=== PATIENT | female | born 1975 | race Caucasian/White ===

== ENCOUNTER 2017-08-06 12:24 | Emergency (ER) | payer BC, OTHER ==
[2017-08-06 12:31] VITALS: BP 145/91; PULSE 70; TEMP 98.8; BMI 41.5
--- NOTE | 2017-08-06 12:34 | PDOC ---
History of Present Illness - General Chief Complaint: Injury Stated Complaint: LEFT THUMB INJURY Time Seen by Provider: 08/06/17 12:26 History Source: Patient Exam Limitations: No Limitations - History of Present Illness Initial Comments: 42 yo F history Von Willebrand's as well as thrombophilia presents with L thumb pain. She works at a [employer], states that one of the children grabbed her thumb, bent it backwards towards her wrist. She is able to move it, but has significant pain on movement. Denies weakness, numbness. No other injuries. Past History - Past Medical History Allergies/Adverse Reactions: Allergies Allergy/AdvReac Type Severity Reaction Status Date / Time No Known Allergies Allergy Verified 08/06/17 12:25 Home Medications: Ambulatory Orders Aspirin [Aspirin EC] 81 mg PO DAILY 08/06/17 Ibuprofen [Motrin -] 600 mg PO TID PRN #21 tablet 08/06/17 Multivitamin [One Daily] 1 each PO DAILY 08/06/17 - Suicide/Smoking/Psychosocial Hx Smoking History: Former smoker Have you smoked in the past 12 months: No Information on smoking cessation initiated: No Hx Alcohol Use: No Drug/Substance Use Hx: No Substance Use Type: None Review of Systems - Review of Systems Able to Perform ROS?: Yes Comments:: GENERAL/CONSTITUTIONAL: No fever or chills. No weakness. HEAD, EYES, EARS, NOSE AND THROAT: No change in vision. No ear pain or discharge. No sore throat. MUSCULOSKELETAL: No joint or muscle swelling or pain. No neck or back pain. SKIN: No rash NEUROLOGIC: No headache, vertigo, loss of consciousness, or change in strength/ sensation. ENDOCRINE: No increased thirst. No abnormal weight change. HEMATOLOGIC/LYMPHATIC: +Thrombophilia. +Von Willebrand's disease. *Physical Exam - Vital Signs Last Vital Signs Temp Pulse Resp BP Pulse Ox 98.8 F 70 18 145/91 96 08/06/17 12:25 08/06/17 12:25 08/06/17 12:25 08/06/17 12:25 08/06/17 12:25 - Physical Exam Comments: GENERAL: Awake, alert, and fully oriented, in no acute distress HEAD: No signs of trauma EYES: PERRLA, EOMI, sclera anicteric, conjunctiva clear ENT: Auricles normal inspection, hearing grossly normal, nares patent, oropharynx clear without exudates. Moist mucosa EXTREMITIES: L thumb with tenderness over the thenar eminence. +Pain on flexion of the wrist. No deformities. Remainder of extremities with normal range of motion, no edema. No clubbing or cyanosis. No cords, erythema, or tenderness NEUROLOGICAL: Cranial nerves II through XII grossly intact. Normal speech, normal gait. SKIN: Warm, Dry, normal turgor, no rashes or lesions noted. Procedures - Splinting Splint Location: Left: Finger (thumb) Pre-Proc Neuro Vasc Exam: normal Hand-Made Type: orthoglass Splint Type: Yes: Thumb Spica Post-Proc Neuro Vasc Exam: normal Aydin Bandage: yes, 2" Complications: No Medical Decision Making - Medical Decision Making XR reviewed, no acute fracture. Will place in splint for sprain. Ortho f/u as outpatient. NSAIDs for pain. *DC/Admit/Observation/Transfer Diagnosis at time of Disposition: Thumb pain Left thumb sprain Qualifiers: Encounter type: initial encounter Sprain of finger site: unspecified site Qualified Code(s): S63.602A - Unspecified sprain of left thumb, initial encounter - Discharge Dispostion Disposition: HOME Condition at time of disposition: Stable Admit: No - Prescriptions Prescriptions: Ibuprofen [Motrin -] 600 mg PO TID PRN #21 tablet PRN Reason: Pain - Referrals Referrals: Adria Lares MD [Staff Physician] - - Patient Instructions Printed Discharge Instructions: DI for Finger Sprain - Post Discharge Activity Forms/Work/School Notes: Back to Work
[2017-08-06] MEDS ORDERED: IBUPROFEN 600 MG TABLET (FP) PO ONE ×2 (12:45→12:53)
== END 2017-08-06 14:59 | disposition home or self-care (01) ==
LOC: FER 12:24
CPT/HCPCS: 73130-TC-LT; 99283-25

== ENCOUNTER 2018-07-21 19:15 | Inpatient (IN) | payer OTHER ==
[2018-07-21] MEDS ORDERED: SODIUM CHLORIDE 1,000 ML IV STA (20:29)
[2018-07-21] MEDS ORDERED: ONDANSETRON 4 MG/2 ML VIAL IVPUSH ONE (20:29)
[2018-07-21] MEDS ORDERED: morphine CARPU-JECT 4 MG/1 ML DISP.SYRIN IVPUSH ONE (20:29)
--- NOTE | 2018-07-21 20:37 | PDOC ---
History of Present Illness - General Chief Complaint: Pain Stated Complaint: ABD PAIN Time Seen by Provider: 07/21/18 20:15 History Source: Patient, Old Records Exam Limitations: No Limitations - History of Present Illness Initial Comments: 07/21/18 20:46 HISTORY OF PRESENT ILLNESS: 43-year-old woman past medical history of Von Willenbrand's and hemorrhagic left ovarian cyst who presents emergency Department with abdominal pain starting approximately 36 hours prior to arrival. Patient states the pain is slowly grown since that time currently rates pain 9/10. Patient is unable to determine location of pain that started on the left side and has progressed throughout her abdomen. Patient reports nausea and inability to tolerate oral food or drink for the past 24 hours. Patient denies fevers reports chills. Patient denies chest pain, shortness of breath, dizziness, diarrhea, rectal bleeding, vaginal bleeding, dysuria, hematuria. No recent travel or sick contacts. PAST MEDICAL HISTORY: Von Yoannarand's SURGICAL HISTORY: Denies ALLERGIES: No known drug allergies REVIEW OF SYSTEMS General/Constitutional: Denies fever. +chills. Denies weakness, weight change. HEENT: Denies change in vision. Denies ear pain or discharge. Denies sore throat. Cardiovascular: Denies chest pain or shortness of breath. Respiratory: Denies cough, wheezing, or hemoptysis. Gastrointestinal: Reports nausea, vomiting. Denies diarrhea or constipation. Denies rectal bleeding. Genitourinary: Denies dysuria, frequency, or change in urination. Musculoskeletal: Denies joint or muscle swelling or pain. Denies neck or back pain. Skin and breasts: Denies rash or easy bruising. Neurologic: Denies headache, vertigo, loss of consciousness, or loss of sensation. Psychiatric: Denies depression or anxiety. Endocrine: Denies increased thirst. Denies abnormal weight change. Hematologic/Lymphatic: Denies anemia, easy bleeding, or history of blood clots. Allergic/Immunologic: Denies hives or skin allergy. Denies latex allergy. PHYSICAL EXAM General Appearance: Well-appearing, appropriately dressed. No apparent distress , no intoxication. HEENT: EOMI, PERRLA, normal ENT inspection, normal voice, TMs normal, pharynx normal. No conjunctival pallor. No photophobia, scleral icterus. Neck: Supple. Trachea midline. No tenderness, rigidity, carotid bruit, stridor , lymphadenopathy, or thyromegaly. Respiratory/Chest: Lungs CTAB. No shortness of breath, chest tenderness, respiratory distress, accessory muscle use. No crackles, rales, rhonchi, stridor , wheezing, dullness Cardiovascular: RRR. S1, S2. No JVD, murmur, bradycardia, tachycardia. Vascular Pulses: Dorsalis-Pedis (R): 2+, Dorsalis-Pedis (L): 2+ Gastrointestinal/Abdominal: Normal bowel sounds. Obese abdomen soft, non- distended. RLQ and LLQ tenderness with guarding. No rebound tenderness. No organomegaly, pulsatile mass, hernia, hepatomegaly, splenomegaly. Lymphatic: No adenopathy, tenderness. Musculoskeletal/Extremities: Normal inspection. FROM of all extremities, normal capillary refill. Pelvis Stable. No CVA tenderness. No tenderness to extremities, pedal edema, swelling, erythema or deformity. Integumentary: Appropriate color, dry, warm. 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 Fully oriented, alert. Appropriate mood/affect. Motor strength 5/5. No appreciable EOM palsy, facial droop or sensory deficit. Past History - Past Medical History Allergies/Adverse Reactions: Allergies Allergy/AdvReac Type Severity Reaction Status Date / Time No Known Allergies Allergy Verified 07/21/18 19:41 Home Medications: Ambulatory Orders NK [No Known Home Medication] 07/21/18 COPD: No - Suicide/Smoking/Psychosocial Hx Smoking History: Never smoked Have you smoked in the past 12 months: No Information on smoking cessation initiated: No Hx Alcohol Use: No Drug/Substance Use Hx: No Substance Use Type: None *Physical Exam - Vital Signs Last Vital Signs Temp Pulse Resp BP Pulse Ox 99.7 F H 92 H 18 144/66 100 07/21/18 19:35 07/21/18 19:35 07/21/18 19:35 07/21/18 19:35 07/21/18 19:35 ED Treatment Course - LABORATORY CBC & Chemistry Diagram: 07/21/18 20:42 07/21/18 20:42 - RADIOLOGY Radiology Studies Ordered: Category Date Time Status ABDOMEN & PELVIS CT WITH CONTR [CT] Stat CT Scan 07/21/18 20:32 Ordered CHEST X-RAY PORTABLE* [RAD] Stat Radiology 07/21/18 20:31 Ordered Medical Decision Making - Medical Decision Making 07/21/18 20:53 A/P: 43-year-old woman history of von Willebrand's and hemorrhagic ovarian cyst with lower abdominal pain for 36 hours Normoactive bowel sounds Diffuse tenderness to lower abdomen Regarding lower abdomen No rebound tenderness No CVA tenderness elicited DDx: Appendicitis, diverticulitis, ovarian cyst, ectopic , UTI, colitis , renal colic, mesenteric ischemia Labs with blood culture, urine with culture, IV fluids, morphine 4 mg IV now, Zofran 4 mg IV now, normal saline, CXR, EKG 07/21/18 22:19 Chest x-rays read by me: No acute pulmonary pathology noted. EKG: Sinus rhythm with rate of 99. Normal intervals noted. No T-wave inversions , ST elevations or ST depressions present. Patient with elevated lactic acid. I will treat with Zosyn 4.5 g now and vancomycin 1500 mg. 07/22/18 00:01 Patient returned from CAT scan complaining of entire body itching. Patient had just received IV contrast for the CAT scan. Patient denied any shortness of breath or throat itching. It is noted that her vancomycin was infusing rapidly at the same time. Diffuse erythema noted to patient's body with pruritus. Examination of the oropharynx reveals no erythema or edema noted. No stridor present. Speaking full sentences. No drooling noted. Patient medicated with Benadryl 50 mg IV push, Solu-Medrol 125 mg IV push and Pepcid 20 mg IV. Vancomycin was stopped. CT of abdomen and pelvis as discussed with Dr. Lacey: Acute diverticulitis without abscess formation. As patient has a white count M had an elevated lactate I'll admit the patient for IV antibiotics. Patient's primary doctor is at [facility] I will call [facility] for admission. 07/22/18 00:51 case d/w Dr. Craven who accepts pt for admission under Dr. Coffey. *DC/Admit/Observation/Transfer Diagnosis at time of Disposition: Diverticulitis - Discharge Dispostion Condition at time of disposition: Fair Decision to Admit order: Yes - Referrals Referrals: Celeste Jung MD [Primary Care Provider] - - Patient Instructions - Post Discharge Activity
[2018-07-21] MEDS ORDERED: morphine SULFATE 4 MG/ML VIAL ONE (20:49)
[2018-07-21] MEDS ORDERED: ONDANSETRON 4 MG/2 ML VIAL ONE (20:49)
[2018-07-21 20:54] LABS: BASO % 0.2 % (0-2.0); EOS % 0.1 % (0-4.5); HEMATOCRIT 41.3 % (32.4-45.2); HEMOGLOBIN 13.8 GM/dL (10.7-15.3); LYMPH % 9.2 % (8-40); MCH 30.1 pg (25.7-33.7); MCHC 33.5 g/dl (32.0-36.0); MEAN CELL VOLUME 89.8 fl (80-96); MEAN PLT VOLUME 7.8 fl (7.5-11.1); MONO % 5.1 % (3.8-10.2); NEUT % 85.4 % (42.8-82.8); PLATELET COUNT 283 K/MM3 (134-434); WHITE BLOOD COUNT 14.5 K/mm3 (4.0-10.0)
[2018-07-21 21:13] LABS: INR 1.06 (0.83-1.09)
[2018-07-21 21:25] LABS: ALBUMIN 3.8 g/dl (3.4-5.0); ANION GAP 10 MMOL/L (8-16); BLOOD UREA NITROGEN 9 mg/dL (7-18); CHLORIDE 101 mmol/L (98-107); CO2 27 mmol/L (21-32); GLUCOSE,RANDOM 193 mg/dL (74-106); LIPASE 70 U/L (73-393); POTASSIUM 4.2 mmol/L (3.5-5.1); SODIUM 138 mmol/L (136-145)
[2018-07-21 21:28] LABS: ALK PHOS 97 U/L (45-117); BILIRUBIN,TOTAL 0.9 mg/dL (0.2-1.0); CREATININE 0.7 mg/dL (0.55-1.3); SGOT/AST 26 U/L (15-37); SGPT/ALT 44 U/L (13-61); TOT PROT 7.5 g/dl (6.4-8.2)
[2018-07-21 21:29] LABS: URINE APPEARANCE SLCLOUDY; URINE BILIRUBIN NEGATIVE (<2.0 mg/dL); URINE COLOR YELLOW; URINE GLUCOSE (UA) 1+ (NEGATIVE); URINE KETONE 2+ (NEGATIVE); URINE LEUK ESTERASE NEGATIVE (NEGATIVE); URINE NITRITE NEGATIVE (NEGATIVE); URINE UROBILINOGEN 4.0 E.U/dl mg/dL (0.2-1.0)
[2018-07-21 21:36] LABS: URINE PROTEIN 1+ (NEGATIVE)
[2018-07-21] MEDS ORDERED: PIPERACILLIN/TAZOB 4.5 GM 4.5 GM in DEXTROSE 5%-WATER 100 ML IVPB ONE (21:40)
[2018-07-21] MEDS ORDERED: VANCOMYCIN 1,500 MG in DEXTROSE 5%-WATER - 500 ML IVPB ONE (21:41)
[2018-07-21 21:42] LABS: EPI CELLS MODERATE /HPF (FEW); URINE BACTERIA MODERATE /hpf (NONE SEEN); URINE MUCUS MODERATE
[2018-07-21] MEDS ORDERED: PIPERACILLIN/TAZOB 4.5 GM 4.5 GM/100 ML BAG IVPB ONE (21:46)
[2018-07-21] MEDS ORDERED: methylPREDNISolone NA SUCC 125 MG/2 ML VIAL IVPUSH ONE (23:21)
[2018-07-21] MEDS ORDERED: FAMOTIDINE 20 MG/50 ML IVPB 20 MG/50 ML MG IVPB ONE ×2 (23:21→23:25)
[2018-07-21] MEDS ORDERED: methylPREDNISolone NA SUCC 125 MG/2 ML VIAL ONE (23:25)
[2018-07-22] MEDS ORDERED: morphine CARPU-JECT 4 MG/1 ML DISP.SYRIN IVPUSH ONE (00:02)
[2018-07-22] MEDS ORDERED: morphine SULFATE 4 MG/ML VIAL ONE (00:37)
--- NOTE | 2018-07-22 01:58 | PN ---
Teaching Attending Note Name of Resident: Katty Marie ATTENDING PHYSICIAN STATEMENT I saw and evaluated the patient. I reviewed the resident's note and discussed the case with the resident. I agree with the resident's findings and plan as documented. SUBJECTIVE: Patient is a 43 year old woman with PMH of Von Willenbrand's disease, thrombophilia and hemorrhagic left ovarian cyst who presents to the ER with abdominal pain starting approximately 36 hours prior to arrival. Patient states the pain is slowly increasing since that time rates pain as 9/10. Patient is unable to determine location of pain that started on the left side and has progressed throughout her abdomen. Patient reports nausea and inability to tolerate food or drink for the past 24 hours. Patient denies fevers reports chills. Patient denies chest pain, shortness of breath, dizziness, diarrhea, rectal bleeding, vaginal bleeding, dysuria, or hematuria. OBJECTIVE: Alert Vital Signs Period Temp Pulse Resp BP Sys/Borrero Pulse Ox Last 24 Hr 99.7 F 92 18 144/66 100 HEENT: No Jaundice, eye redness or discharge, PERRLA, EOMI. Normocephalic, atraumatic. External ears are normal and hearing is grossly intact. No nasal discharge. Neck: Supple, nontender. No palpable adenopathy or thyromegaly. No JVD Chest: Good effort. Clear to auscultation and percussion. Heart: Regular. No S3, rub or murmur Abdomen: Not distended, soft, lower abdominal tenderness and no HSM. No rebound or guarding. Normoactive bowel sounds. Ext: Peripheral pulses intact. No leg edema. Skin: Warm and dry. No petechiae, rash or ecchymosis. Neuro: Alert. Oriented x3. CN 2-12 grossly intact. Sensation grossly intact in all four extremities and DTR are symmetric. Home Medications Medication Instructions Recorded NK [No Known Home Medication] 07/21/18 Abnormal Lab Results 07/21/18 07/21/18 07/21/18 20:42 20:42 20:42 WBC 14.5 H Absolute Neuts (auto) 12.4 H Neutrophils % 85.4 H Random Glucose 193 H Lactic Acid 3.1 H* Lipase 70 L Urine Protein Urine Glucose (UA) Urine Ketones Urine Urobilinogen 07/21/18 07/22/18 21:04 00:30 WBC Absolute Neuts (auto) Neutrophils % Random Glucose Lactic Acid 2.2 H* Lipase Urine Protein 1+ H Urine Glucose (UA) 1+ H Urine Ketones 2+ H Urine Urobilinogen 4.0 e.u/dl H ASSESSMENT AND PLAN: 1. Sepsis due to Sigmoid Diverticulitis - Will treat with IV rocephin and cipro. Continue IV NS and trend lactic acid level. She denies having DM or family history of DM. Will get HbAic, implement sliding scale insulin regimen and consult endocrinology. May need to be started on diabetes treatment. Provide comprehensive diabetes care with patient teaching and counseling about the importance of euglycemia, eye care and foot care. Strive for normotension. 2. Obesity - Will provide patient all the necessary assistance, counseling and positive reinforcement to facilitate weight loss. Consult insulating machine operator. 3. DVT prophylaxis - Lovenox 40 mg SQ q 24 hours. 4. Advance directives - Full code
[2018-07-22] MEDS ORDERED: ACETAMINOPHEN 1000 MG/100 ML VIAL (NON FORMULARY) IVPB ONE (03:19)
--- NOTE | 2018-07-22 03:23 | HP ---
CHIEF COMPLAINT: Abdominal pain PCP: Dr. Kelly Adams (Last seen >1 year ago) HISTORY OF PRESENT ILLNESS: 43 y/o F with PMHx of von Willebrand disease, Left Ovarian cysts presents with progressive Abdominal pain for the past 48 hours. Patient woke up Wednesday morning with a cramping, pelvic pain she felt was similar to menstrual cramping (LMP ended 07/02). Patient tolerated diet Wednesday and at some point during Wednesday night, patient woke with an unbearable abdominal pain. She describes the pain as Stabbing and sharp, initially in the suprapubic region that is now also present in the center of the Abdomen and the LUQ, at worst 10/10. Patient tried Motrin and Aleve with out any relief. She has never experienced pain like this in the past. She is unable to identify any triggering factors. The pain remained without any improvement and the patient began to experience nausea accompanied by a single episode of billious vomit, 1/4 cups worth, at 5pm at which point she decided to visit the ED. She additionally experienced some chills while at home. Her last BM was Wednesday morning and the last meal she tolerated was Wednesday night. Patient has 1-2 BM's daily without any blood, mucus, straining. She denies any recent episodes of diarrhea. Denies any hx of constipation, appendicitis, diverticulitis, diverticulosis, kidney stones. Denies any hx of STI's/STD's. She admits that her diet is heavy in carbs but also has significant portions of spinach and salad. She has never visited a campus coordinator and has never had a colonoscopy. Denies any recent Antibiotic use, medication changes, sick contacts, dietary changes or travel. Denies any recent fevers, chest pain, SOB, dysuria, hematuria. 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 Residence: Lives at home with her , 2 children and a dog Ambulation: On her own without assistance Family History: Father and 2 Brothers suffer from Alcoholism, one brother has passed from drug overdose Allergies No Known Allergies Allergy (Verified 07/21/18 19:41) HOME MEDICATIONS: Home Medications Medication Instructions Recorded NK [No Known Home Medication] 07/21/18 REVIEW OF SYSTEMS CONSTITUTIONAL: Present: Chills, Decreased PO Intake Absent: fever, diaphoresis, generalized weakness, malaise, loss of appetite, weight change HEENT: Absent: rhinorrhea, nasal congestion, throat pain, throat swelling, difficulty swallowing, mouth swelling, ear pain, eye pain, visual changes CARDIOVASCULAR: Absent: chest pain, syncope, palpitations, irregular heart rate, lightheadedness , peripheral edema RESPIRATORY: Absent: cough, shortness of breath, dyspnea with exertion, orthopnea, wheezing, stridor, hemoptysis GASTROINTESTINAL: Present: cramping Abdominal/pelvic pain, nausea, vomiting, Absent: abdominal distension, diarrhea, constipation, melena, hematochezia GENITOURINARY: Absent: dysuria, frequency, urgency, hesitancy, hematuria, flank pain, genital pain MUSCULOSKELETAL: Absent: myalgia, arthralgia, joint swelling, back pain, neck pain SKIN: Absent: rash, itching, pallor HEMATOLOGIC/IMMUNOLOGIC: Absent: easy bleeding, easy bruising, lymphadenopathy, frequent infections ENDOCRINE: Absent: unexplained weight gain, unexplained weight loss, heat intolerance, cold intolerance NEUROLOGIC: Absent: headache, focal weakness or paresthesias, dizziness, unsteady gait, seizure, mental status changes, bladder or bowel incontinence PSYCHIATRIC: Absent: anxiety, depression, suicidal or homicidal ideation, hallucinations. PHYSICAL EXAMINATION Vital Signs - 24 hr 07/21/18 07/22/18 19:35 03:12 Temperature 99.7 F H 102.3 F H Pulse Rate 92 H Pulse Rate [ 93 H Left Radial] Respiratory 18 19 Rate Blood Pressure 144/66 Blood Pressure 133/65 [Left Arm] O2 Sat by Pulse 100 Oximetry (%) GENERAL: Awake, alert, and fully oriented, cool and clammy, in no acute distress. HEAD: NCAT. EYES: PERRL, EOMI THROAT: Oropharynx clear without exudates. Dry mucous membranes. NECK: No JVD LUNGS: Breath sounds equal, clear to auscultation bilaterally. No wheezes. HEART: Regular rate and rhythm, normal S1 and S2 without murmur. ABDOMEN: Obese, Soft, Tender to palpation throughout worst in the Suprapubic and LUQ regions, not distended, normoactive bowel sounds MUSCULOSKELETAL: No CVA tenderness. EXTREMITIES: 2+ pulses, No calf tenderness. No peripheral edema. NEUROLOGICAL: Cranial nerves II-XII intact. Normal speech. Laboratory Results - last 24 hr 07/21/18 07/21/18 07/21/18 20:42 20:42 20:42 WBC 14.5 H RBC 4.60 Hgb 13.8 Hct 41.3 MCV 89.8 MCH 30.1 MCHC 33.5 RDW 13.0 Plt Count 283 MPV 7.8 Absolute Neuts (auto) 12.4 H Neutrophils % 85.4 H Lymphocytes % 9.2 Monocytes % 5.1 Eosinophils % 0.1 Basophils % 0.2 Nucleated RBC % 0 PT with INR 12.00 INR 1.06 Sodium 138 Potassium 4.2 Chloride 101 Carbon Dioxide 27 Anion Gap 10 BUN 9 Creatinine 0.7 Creat Clearance w eGFR > 60 Random Glucose 193 H Lactic Acid Calcium 9.0 Magnesium 2.0 Total Bilirubin 0.9 AST 26 ALT 44 Alkaline Phosphatase 97 Total Protein 7.5 Albumin 3.8 Lipase 70 L Urine Color Urine Appearance Urine pH Ur Specific [place] Urine Protein Urine Glucose (UA) Urine Ketones Urine Blood Urine Nitrite Urine Bilirubin Urine Urobilinogen Ur Leukocyte Esterase Urine WBC (Auto) Urine RBC (Auto) Ur Epithelial Cells Urine Bacteria Urine Mucus Urine HCG, Qual Blood Type Antibody Screen 07/21/18 07/21/18 07/21/18 20:42 20:42 21:04 WBC RBC Hgb Hct MCV MCH MCHC RDW Plt Count MPV Absolute Neuts (auto) Neutrophils % Lymphocytes % Monocytes % Eosinophils % Basophils % Nucleated RBC % PT with INR INR Sodium Potassium Chloride Carbon Dioxide Anion Gap BUN Creatinine Creat Clearance w eGFR Random Glucose Lactic Acid 3.1 H* Calcium Magnesium Total Bilirubin AST ALT Alkaline Phosphatase Total Protein Albumin Lipase Urine Color Yellow Urine Appearance Slcloudy Urine pH 6.0 Ur Specific [place] 1.026 Urine Protein 1+ H Urine Glucose (UA) 1+ H Urine Ketones 2+ H Urine Blood Negative Urine Nitrite Negative Urine Bilirubin Negative Urine Urobilinogen 4.0 e.u/dl H Ur Leukocyte Esterase Negative Urine WBC (Auto) 3 Urine RBC (Auto) 2 Ur Epithelial Cells Moderate Urine Bacteria Moderate Urine Mucus Moderate Urine HCG, Qual Blood Type O POSITIVE Antibody Screen Negative 07/21/18 07/22/18 21:04 00:30 WBC RBC Hgb Hct MCV MCH MCHC RDW Plt Count MPV Absolute Neuts (auto) Neutrophils % Lymphocytes % Monocytes % Eosinophils % Basophils % Nucleated RBC % PT with INR INR Sodium Potassium Chloride Carbon Dioxide Anion Gap BUN Creatinine Creat Clearance w eGFR Random Glucose Lactic Acid 2.2 H* Calcium Magnesium Total Bilirubin AST ALT Alkaline Phosphatase Total Protein Albumin Lipase Urine Color Urine Appearance Urine pH Ur Specific [place] Urine Protein Urine Glucose (UA) Urine Ketones Urine Blood Urine Nitrite Urine Bilirubin Urine Urobilinogen Ur Leukocyte Esterase Urine WBC (Auto) Urine RBC (Auto) Ur Epithelial Cells Urine Bacteria Urine Mucus Urine HCG, Qual Negative Blood Type Antibody Screen Active Medications Enoxaparin Sodium (Lovenox -) 40 mg SQ DAILY LUCY Ciprofloxacin/Dextrose (Cipro 400 Mg Premix Ivpb (Restricted To Id)) 400 mg in 200 mls @ 200 mls/hr IVPB BID LUCY Metronidazole (Flagyl 500mg Premixed Ivpb -) 500 mg in 100 mls @ 100 mls/hr IVPB Q8H-IV LUCY Sodium Chloride (Normal Saline -) 1,000 mls @ 125 mls/hr IV ASDIR LUCY Morphine Sulfate (Morphine Sulfate) 4 mg IVPUSH Q4H PRN PRN Reason: PAIN LEVEL 6-10 Ondansetron HCl (Zofran Injection) 4 mg IVPUSH Q4H PRN PRN Reason: NAUSEA AND/OR VOMITING ASSESSMENT/PLAN: 43 y/o F with PMHx of von Willebrand disease, Left Ovarian cysts presents with progressive Abdominal pain for the past 48 hours. On Physical exam she is found to have HR 92 and tenderness to palpation most significant in the Suprapubic and LUQ Regions. Lab values significant for WBC 14.5, Lactic acid 3.1 --> 2.2, BG 193. CT A/P significant for an Acute uncomplicated sigmoid diverticulitis. 1. Sepsis - Likely due to Acute uncomplicated Sigmoid diverticulitis - HR 92, WBC 14.5 - IV NS @ 125 mls/hr - IV Cipro 400mg q12h, IV Flagyl 500mg q8h - Morphine 4mg q4h PRN - Zofran - NPO - ID (Dr. Dejesus) consulted - Notified patient spike a fever of 102.3, Tylenol 1000mg IV given - Blood and Urine cultures pending - CXR on my read shows no acute chest pathology; pending official read 2. Lactic acidosis - Lactic acid 3.1 --> 2.2 - Continue Hydration via IV NS @ 125 mls/hr 3. Elevated Blood glucose - BGMs ISS ACHS - A1c ordered - Endocrine (Dr. Fernandez) consulted - Engineering Vice President consulted 4. FEN - IV NS - Lytes wnl - NPO for bowel rest 5. PPx - DVT: Lovenox 40mg SQ Dispo: Admit to med surg Visit type - Emergency Visit Emergency Visit: Yes ED Registration Date: 07/22/18 Care time: The patient presented to the Emergency Department on the above date and was hospitalized for further evaluation of their emergent condition. - New Patient This patient is new to me today: Yes Date on this admission: 07/22/18 - Critical Care Critical Care patient: No Hospitalist Screening - Colonoscopy Questionnaire Colonoscopy Questionnaire: Colonoscopy Questionnaire - Patient: 50 - 75 years old and never had a screening colonoscopy: Unknown History of colon or rectal polyps, or CA: Unknown History of IBD, Crohn's disease or UC: Unknown History of abdominal radiation therapy as a child: Unknown - Relative: 1 with colon or rectal CA, or polyps at age 60 or younger: Unknown Colon or rectal CA diagnosed at age 45 or younger: Unknown Multiple relatives with colon or rectal CA: Unknown - Outcome: Screening Result: Negative Screen
[2018-07-22] MEDS ORDERED: morphine SULFATE 4 MG/ML VIAL IVPUSH PRN (03:25)
[2018-07-22] MEDS ORDERED: ACETAMINOPHEN INJECTION 100 ML IVPB ONE (03:27)
[2018-07-22] MEDS ORDERED: ONDANSETRON 4 MG/2 ML VIAL IVPUSH PRN (04:27)
[2018-07-22] MEDS: SODIUM CHLORIDE 1,000 ML IV SCH ×2 (04:55→15:19)
[2018-07-22] MEDS ORDERED: MORPHINE SULFATE 2 MG/ML VIAL IVPUSH PRN (07:24)
--- NOTE | 2018-07-22 09:15 | EKG ---
Test Reason : Blood Pressure : / mmHG Vent. Rate : 099 BPM Atrial Rate : 099 BPM P-R Int : 150 ms QRS Dur : 076 ms QT Int : 348 ms P-R-T Axes : 053 000 003 degrees QTc Int : 446 ms SINUS RHYTHM WITH OCCASIONAL PREMATURE VENTRICULAR COMPLEXES NO PREVIOUS ECGS AVAILABLE Confirmed by BETSY ADAM MD ([id number]) on 07/22/2018 9:15:13 AM Referred By: Confirmed By:BETSY ADAM MD
[2018-07-22 09:55] LABS: ALBUMIN 3.3 g/dl (3.4-5.0); ALK PHOS 85 U/L (45-117); ANION GAP 12 MMOL/L (8-16); BILIRUBIN,TOTAL 0.8 mg/dL (0.2-1.0); BLOOD UREA NITROGEN 8 mg/dL (7-18); CALCIUM 8.4 mg/dL (8.5-10.1); CHLORIDE 104 mmol/L (98-107); CO2 25 mmol/L (21-32); CREATININE 0.6 mg/dL (0.55-1.3); GLUCOSE,RANDOM 276 mg/dL (74-106); MAGNESIUM 2.1 mg/dL (1.8-2.4); PHOSPHOROUS 3.4 mg/dL (2.5-4.9); POTASSIUM 4.1 mmol/L (3.5-5.1); SGOT/AST 29 U/L (15-37); SGPT/ALT 44 U/L (13-61); SODIUM 141 mmol/L (136-145)
[2018-07-22] MEDS ORDERED: ENOXAPARIN NA (PORCINE) 40 MG/0.4 ML DISP.SYRIN SQ SCH (10:00)
[2018-07-22] MEDS ORDERED: CIPROFLOXACIN 400 MG/D5W 400 MG/200 ML IVPB IVPB ONE (10:00)
[2018-07-22 10:02] LABS: BASO % 0.1 % (0-2.0); HEMATOCRIT 39.7 % (32.4-45.2); HEMOGLOBIN 13.1 GM/dL (10.7-15.3); LYMPH % 9.9 % (8-40); MCH 29.8 pg (25.7-33.7); MCHC 33.1 g/dl (32.0-36.0); MEAN PLT VOLUME 7.7 fl (7.5-11.1); MONO % 2.3 % (3.8-10.2); NEUT % 87.7 % (42.8-82.8); PLATELET COUNT 245 K/MM3 (134-434); RBC 4.41 M/mm3 (3.60-5.2); RDW 12.9 % (11.6-15.6); WHITE BLOOD COUNT 14.1 K/mm3 (4.0-10.0)
[2018-07-22] MEDS ORDERED: INSULIN SLIDING SCALE (NOVOLOG) 1 VIAL SQ SCH ×2 (11:00)
--- NOTE | 2018-07-22 13:48 | CONSULT ---
Consult Consult Specialty:: endocrine Referred by:: mattie Reason for Consultation:: diabetes melltius - History of Present Illness Chief Complaint: high sugars recently History of Present Illness: 43 year old woman with PMH of pcos,Von Willenbrand's disease, thrombophilia and hemorrhagic left ovarian cyst who presents to the ER with abdominal pain starting approximately 36 hours prior to arrival. Patient had pain increasing intensity left lower quadrant,nausea no vomiting diarhea blurred vision or chest pain.she has refused insulin and wants to try only pills,and will strictly control diet. - Past Medical History ...LMP: 06/27/18 ...: No - Alcohol/Substance Use Hx Alcohol Use: Yes (2x a month) - Smoking History Smoking history: Former smoker Have you smoked in the past 12 months: No If you are a former smoker, when did you quit?: 2000 Home Medications - Allergies Allergies/Adverse Reactions: Allergies Allergy/AdvReac Type Severity Reaction Status Date / Time No Known Allergies Allergy Verified 07/21/18 19:41 - Home Medications Home Medications: Ambulatory Orders NK [No Known Home Medication] 07/21/18 Review of Systems - Review of Systems Constitutional: reports: Lethargy Eyes: reports: No Symptoms HENT: reports: No Symptoms Neck: reports: No Symptoms Cardiovascular: reports: Shortness of Breath Respiratory: reports: Exercise Intolerance Gastrointestinal: reports: Bloating, Constipation Genitourinary: reports: No Symptoms Breasts: reports: No Symptoms Reported Musculoskeletal: reports: No Symptoms Neurological: reports: No Symptoms Endocrine: reports: Unexplained Weight Loss Physical Exam Vital Signs: Vital Signs Temperature 98.6 F 07/22/18 04:30 Pulse Rate 86 07/22/18 04:30 Respiratory Rate 17 07/22/18 04:35 Blood Pressure 125/76 07/22/18 04:30 O2 Sat by Pulse Oximetry (%) 97 07/22/18 04:35 Constitutional: Yes: Anxious Eyes: Yes: EOM Intact HENT: Yes: Normocephalic Neck: Yes: Trachea Midline Cardiovascular: Yes: Regular Rate and Rhythm Respiratory: Yes: CTA Bilaterally Gastrointestinal: Yes: Normal Bowel Sounds, Abdomen, Obese ...Rectal Exam: Yes: Deferred Renal/: Yes: WNL Musculoskeletal: Yes: WNL Extremities: Yes: WNL Edema: No Neurological: Yes: Alert, Oriented Labs: CBC, BMP 07/22/18 08:53 07/22/18 08:53 Problem List - Problems (1) Type 2 diabetes mellitus with hyperosmolarity without nonketotic hyperglycemic-hyperosmolar coma ([facility]) Code(s): E11.00 - TYPE 2 DIAB W HYPROSM W/O NONKET HYPRGLY-HYPROS COMA ([facility]) (2) Diverticulitis Code(s): K57.92 - DVTRCLI OF INTEST, PART UNSP, W/O PERF OR ABSCESS W/O BLEED (3) Left thumb sprain Code(s): S63.602A - UNSPECIFIED SPRAIN OF LEFT THUMB, INITIAL ENCOUNTER Qualifiers: Encounter type: initial encounter Sprain of finger site: unspecified site Qualified Code(s): S63.602A - Unspecified sprain of left thumb, initial encounter (4) Thumb pain Code(s): M79.646 - PAIN IN UNSPECIFIED FINGER(S) Qualifiers: Laterality: left Qualified Code(s): M79.645 - Pain in left finger(s) Assessment/Plan Current Active Problems new onset dm insulin resistant,obesity Abnormal Lab Results 07/21/18 07/21/18 07/21/18 20:42 20:42 20:42 WBC 14.5 H Absolute Neuts (auto) 12.4 H Neutrophils % 85.4 H Monocytes % Random Glucose 193 H Hemoglobin A1c % Lactic Acid 3.1 H* Calcium Albumin Lipase 70 L Urine Protein Urine Glucose (UA) Urine Ketones Urine Urobilinogen 07/21/18 07/22/18 07/22/18 21:04 00:30 08:53 WBC 14.1 H Absolute Neuts (auto) 12.3 H Neutrophils % 87.7 H Monocytes % 2.3 L Random Glucose Hemoglobin A1c % Lactic Acid 2.2 H* Calcium Albumin Lipase Urine Protein 1+ H Urine Glucose (UA) 1+ H Urine Ketones 2+ H Urine Urobilinogen 4.0 e.u/dl H 07/22/18 07/22/18 08:53 08:53 WBC Absolute Neuts (auto) Neutrophils % Monocytes % Random Glucose 276 H Hemoglobin A1c % 7.8 H Lactic Acid Calcium 8.4 L Albumin 3.3 L Lipase Urine Protein Urine Glucose (UA) Urine Ketones Urine Urobilinogen Diverticulitis (Acute) diabetes mellitus hyperglycemia dehydration gregorio noonan plan: bgm qid coverage as ordered gi consult glimiperide 2mg daily add metformin 500mg bid as diet improves nutrition consult diabetic teaching
[2018-07-22] MEDS ORDERED: ACETAMINOPHEN 1000 MG/100 ML VIAL (NON FORMULARY) IVPB PRN (13:56)
--- NOTE | 2018-07-22 14:29 | PN ---
Progress Note (short form) - Note Progress Note: ID Consult dictated Acute uncomplicated sigmoid diverticulitis Fever/ leukocytosis R/O Sepsis secondary to GI source Lactic acidosis Await c/s Continue empiric cipro/flagyl
--- NOTE | 2018-07-22 14:31 | PN ---
Teaching Attending Note Name of Resident: Danisha Armstrong ATTENDING PHYSICIAN STATEMENT I saw and evaluated the patient. I reviewed the resident's note and discussed the case with the resident. I agree with the resident's findings and plan as documented with exceptions below. SUBJECTIVE: Patient seen and examined. still with abdominal pain but improved. no nausea, vomiting or new concerns otherwise. no BM inhouse. OBJECTIVE: Vital Signs Period Temp Pulse Resp BP Sys/Borrero Pulse Ox Last 24 Hr 98.6 F-102.3 F 86-93 17-19 125-144/65-76 97-100 Intake & Output 07/19/18 07/20/18 07/21/18 07/22/18 23:59 23:59 23:59 23:59 Intake Total 250 Balance 250 Weight 236 lb 243 lb 11.2 oz General: morbidly obese female in NAD in bed, CVS: S1S2 regular Abdomen: soft obese, tenderness max in LLQ, also in lower abdominal and per- umbilical region, no involuntary guarding or rigidity, positive bowel sounds Extremities: no edema Home Medications Medication Instructions Recorded NK [No Known Home Medication] 07/21/18 Active Medications Acetaminophen (Ofirmev Injection -) 1,000 mg IVPB Q6H PRN PRN Reason: PAIN Enoxaparin Sodium (Lovenox -) 40 mg SQ DAILY [facility] Last Admin: 07/22/18 10:05 Dose: 40 mg Glimepiride (Amaryl -) 2 mg PO DAILY@0700 [facility] Ciprofloxacin/Dextrose (Cipro 400 Mg Premix Ivpb (Restricted To Id)) 400 mg in 200 mls @ 200 mls/hr IVPB BID [facility] Metronidazole (Flagyl 500mg Premixed Ivpb -) 500 mg in 100 mls @ 100 mls/hr IVPB Q8H-IV [facility] Last Admin: 07/22/18 10:04 Dose: 100 mls/hr Sodium Chloride (Normal Saline -) 1,000 mls @ 125 mls/hr IV ASDIR [facility] Last Admin: 07/22/18 04:55 Dose: 125 mls/hr Insulin Aspart (Novolog Vial Sliding Scale -) 1 vial SQ ACHS [facility]; Protocol Ondansetron HCl (Zofran Injection) 4 mg IVPUSH Q4H PRN PRN Reason: NAUSEA AND/OR VOMITING Laboratory Results - last 24 hr 0907/21/18 07/21/18 20:42 20:42 20:42 WBC 14.5 H RBC 4.60 Hgb 13.8 Hct 41.3 MCV 89.8 MCH 30.1 MCHC 33.5 RDW 13.0 Plt Count 283 MPV 7.8 Absolute Neuts (auto) 12.4 H Neutrophils % 85.4 H Lymphocytes % 9.2 Monocytes % 5.1 Eosinophils % 0.1 Basophils % 0.2 Nucleated RBC % 0 PT with INR 12.00 INR 1.06 Sodium 138 Potassium 4.2 Chloride 101 Carbon Dioxide 27 Anion Gap 10 BUN 9 Creatinine 0.7 Creat Clearance w eGFR > 60 POC Glucometer Random Glucose 193 H Hemoglobin A1c % Lactic Acid Calcium 9.0 Phosphorus Magnesium 2.0 Total Bilirubin 0.9 AST 26 ALT 44 Alkaline Phosphatase 97 Total Protein 7.5 Albumin 3.8 Lipase 70 L Urine Color Urine Appearance Urine pH Ur Specific [place] Urine Protein Urine Glucose (UA) Urine Ketones Urine Blood Urine Nitrite Urine Bilirubin Urine Urobilinogen Ur Leukocyte Esterase Urine WBC (Auto) Urine RBC (Auto) Ur Epithelial Cells Urine Bacteria Urine Mucus Urine HCG, Qual Blood Type Antibody Screen 07/21/18 07/21/18 07/21/18 20:42 20:42 21:04 WBC RBC Hgb Hct MCV MCH MCHC RDW Plt Count MPV Absolute Neuts (auto) Neutrophils % Lymphocytes % Monocytes % Eosinophils % Basophils % Nucleated RBC % PT with INR INR Sodium Potassium Chloride Carbon Dioxide Anion Gap BUN Creatinine Creat Clearance w eGFR POC Glucometer Random Glucose Hemoglobin A1c % Lactic Acid 3.1 H* Calcium Phosphorus Magnesium Total Bilirubin AST ALT Alkaline Phosphatase Total Protein Albumin Lipase Urine Color Yellow Urine Appearance Slcloudy Urine pH 6.0 Ur Specific [place] 1.026 Urine Protein 1+ H Urine Glucose (UA) 1+ H Urine Ketones 2+ H Urine Blood Negative Urine Nitrite Negative Urine Bilirubin Negative Urine Urobilinogen 4.0 e.u/dl H Ur Leukocyte Esterase Negative Urine WBC (Auto) 3 Urine RBC (Auto) 2 Ur Epithelial Cells Moderate Urine Bacteria Moderate Urine Mucus Moderate Urine HCG, Qual Blood Type O POSITIVE Antibody Screen Negative 07/21/18 07/22/18 07/22/18 21:04 00:30 03:57 WBC RBC Hgb Hct MCV MCH MCHC RDW Plt Count MPV Absolute Neuts (auto) Neutrophils % Lymphocytes % Monocytes % Eosinophils % Basophils % Nucleated RBC % PT with INR INR Sodium Potassium Chloride Carbon Dioxide Anion Gap BUN Creatinine Creat Clearance w eGFR POC Glucometer Random Glucose Hemoglobin A1c % Lactic Acid 2.2 H* 1.0 Calcium Phosphorus Magnesium Total Bilirubin AST ALT Alkaline Phosphatase Total Protein Albumin Lipase Urine Color Urine Appearance Urine pH Ur Specific [place] Urine Protein Urine Glucose (UA) Urine Ketones Urine Blood Urine Nitrite Urine Bilirubin Urine Urobilinogen Ur Leukocyte Esterase Urine WBC (Auto) Urine RBC (Auto) Ur Epithelial Cells Urine Bacteria Urine Mucus Urine HCG, Qual Negative Blood Type Antibody Screen 07/22/18 07/22/18 07/22/18 06:29 08:53 08:53 WBC 14.1 H RBC 4.41 Hgb 13.1 Hct 39.7 MCV 90.0 MCH 29.8 MCHC 33.1 RDW 12.9 Plt Count 245 MPV 7.7 Absolute Neuts (auto) 12.3 H Neutrophils % 87.7 H Lymphocytes % 9.9 Monocytes % 2.3 L Eosinophils % 0.0 D Basophils % 0.1 Nucleated RBC % 0 PT with INR INR Sodium 141 Potassium 4.1 Chloride 104 Carbon Dioxide 25 Anion Gap 12 BUN 8 Creatinine 0.6 Creat Clearance w eGFR > 60 POC Glucometer 275 Random Glucose 276 H Hemoglobin A1c % Lactic Acid Calcium 8.4 L Phosphorus 3.4 Magnesium 2.1 Total Bilirubin 0.8 AST 29 ALT 44 Alkaline Phosphatase 85 Total Protein 7.0 Albumin 3.3 L Lipase Urine Color Urine Appearance Urine pH Ur Specific [place] Urine Protein Urine Glucose (UA) Urine Ketones Urine Blood Urine Nitrite Urine Bilirubin Urine Urobilinogen Ur Leukocyte Esterase Urine WBC (Auto) Urine RBC (Auto) Ur Epithelial Cells Urine Bacteria Urine Mucus Urine HCG, Qual Blood Type Antibody Screen 07/22/18 07/22/18 08:53 12:22 WBC RBC Hgb Hct MCV MCH MCHC RDW Plt Count MPV Absolute Neuts (auto) Neutrophils % Lymphocytes % Monocytes % Eosinophils % Basophils % Nucleated RBC % PT with INR INR Sodium Potassium Chloride Carbon Dioxide Anion Gap BUN Creatinine Creat Clearance w eGFR POC Glucometer 280 Random Glucose Hemoglobin A1c % 7.8 H Lactic Acid Calcium Phosphorus Magnesium Total Bilirubin AST ALT Alkaline Phosphatase Total Protein Albumin Lipase Urine Color Urine Appearance Urine pH Ur Specific [place] Urine Protein Urine Glucose (UA) Urine Ketones Urine Blood Urine Nitrite Urine Bilirubin Urine Urobilinogen Ur Leukocyte Esterase Urine WBC (Auto) Urine RBC (Auto) Ur Epithelial Cells Urine Bacteria Urine Mucus Urine HCG, Qual Blood Type Antibody Screen ASSESSMENT AND PLAN: 43 yof with PMhx of VWD, thrombophilia, ovarian cyst admitted with Acute sigmoid diverticulitis and new onset DM -Acute sigmoid diverticulitis with sepsis -New Onset DM, likely Type II based on body habitus/onset -Transient flushig/pruritis, ?from vanco infusion vs contrast -Von Willibrand disease -Thrombophilia -Ovarian cyst Plan: Ciprofloxacin/flagyl day 1, follow up bloodcultures. Serial abdominal exams. ID consulted. Advance to clears. GI/Surgery input if fails to improve or new concerns. Avoid NSAIDs given h/o VWD Tylenol/morphine prn as tolerated. Endocrine input noted. A1c 7.8. GLimepiride, monitor ISS. Diabetic diet. Nutrition consult for diabetic education. Glucometer teaching Flushing/pruritus resolved. ?vanco mediated vs contrast. Informed patient of the same and advised to notify future providers of the same. Monitor for now. DVTPPX lovenox Dispo pending clinical improvement. Plan discussed with patient in detail, all questions answered.
--- NOTE | 2018-07-22 15:12 | PN ---
Physical Exam: SUBJECTIVE: Patient seen and examined at bedside this morning. She reports improvement of abdominal pain with morphine but complains of headache. OBJECTIVE: Vital Signs Period Temp Pulse Resp BP Sys/Borrero Pulse Ox Last 24 Hr 98.6 F-102.3 F 86-93 17-19 125-144/65-76 97-100 GENERAL: The patient is awake, alert, and fully oriented, in no acute distress. HEAD: Normal with no signs of trauma. EYES: PERRLA, extraocular movements intact, sclera anicteric, conjunctiva clear. ENT: Ears normal, nares patent, oropharynx clear without exudates,dry mucous membranes NECK: Trachea midline, full range of motion, supple. LUNGS: Breath sounds equal, clear to auscultation bilaterally. HEART: Regular rate and rhythm, S1, S2 without murmur, rub or gallop. ABDOMEN: Soft, +tenderness on palpation of all quadrants, worse on the suprapubic and LLQ, +guarding, nondistended, normoactive bowel sounds, no masses , no hepatomegaly. EXTREMITIES: 2+ pulses, warm, well-perfused, no edema. NEUROLOGICAL: Cranial nerves II through XII grossly intact. Normal speech, gait not observed. PSYCH: Normal mood, normal affect. SKIN: Warm, dry, normal turgor, no rashes or lesions noted Laboratory Results - last 24 hr 07/21/18 07/21/18 07/21/18 20:42 20:42 20:42 WBC 14.5 H RBC 4.60 Hgb 13.8 Hct 41.3 MCV 89.8 MCH 30.1 MCHC 33.5 RDW 13.0 Plt Count 283 MPV 7.8 Absolute Neuts (auto) 12.4 H Neutrophils % 85.4 H Lymphocytes % 9.2 Monocytes % 5.1 Eosinophils % 0.1 Basophils % 0.2 Nucleated RBC % 0 PT with INR 12.00 INR 1.06 Sodium 138 Potassium 4.2 Chloride 101 Carbon Dioxide 27 Anion Gap 10 BUN 9 Creatinine 0.7 Creat Clearance w eGFR > 60 POC Glucometer Random Glucose 193 H Hemoglobin A1c % Lactic Acid Calcium 9.0 Phosphorus Magnesium 2.0 Total Bilirubin 0.9 AST 26 ALT 44 Alkaline Phosphatase 97 Total Protein 7.5 Albumin 3.8 Lipase 70 L Urine Color Urine Appearance Urine pH Ur Specific [place] Urine Protein Urine Glucose (UA) Urine Ketones Urine Blood Urine Nitrite Urine Bilirubin Urine Urobilinogen Ur Leukocyte Esterase Urine WBC (Auto) Urine RBC (Auto) Ur Epithelial Cells Urine Bacteria Urine Mucus Urine HCG, Qual Blood Type Antibody Screen 07/21/18 07/21/18 07/21/18 20:42 20:42 21:04 WBC RBC Hgb Hct MCV MCH MCHC RDW Plt Count MPV Absolute Neuts (auto) Neutrophils % Lymphocytes % Monocytes % Eosinophils % Basophils % Nucleated RBC % PT with INR INR Sodium Potassium Chloride Carbon Dioxide Anion Gap BUN Creatinine Creat Clearance w eGFR POC Glucometer Random Glucose Hemoglobin A1c % Lactic Acid 3.1 H* Calcium Phosphorus Magnesium Total Bilirubin AST ALT Alkaline Phosphatase Total Protein Albumin Lipase Urine Color Yellow Urine Appearance Slcloudy Urine pH 6.0 Ur Specific [place] 1.026 Urine Protein 1+ H Urine Glucose (UA) 1+ H Urine Ketones 2+ H Urine Blood Negative Urine Nitrite Negative Urine Bilirubin Negative Urine Urobilinogen 4.0 e.u/dl H Ur Leukocyte Esterase Negative Urine WBC (Auto) 3 Urine RBC (Auto) 2 Ur Epithelial Cells Moderate Urine Bacteria Moderate Urine Mucus Moderate Urine HCG, Qual Blood Type O POSITIVE Antibody Screen Negative 07/21/18 07/22/18 07/22/18 21:04 00:30 03:57 WBC RBC Hgb Hct MCV MCH MCHC RDW Plt Count MPV Absolute Neuts (auto) Neutrophils % Lymphocytes % Monocytes % Eosinophils % Basophils % Nucleated RBC % PT with INR INR Sodium Potassium Chloride Carbon Dioxide Anion Gap BUN Creatinine Creat Clearance w eGFR POC Glucometer Random Glucose Hemoglobin A1c % Lactic Acid 2.2 H* 1.0 Calcium Phosphorus Magnesium Total Bilirubin AST ALT Alkaline Phosphatase Total Protein Albumin Lipase Urine Color Urine Appearance Urine pH Ur Specific [place] Urine Protein Urine Glucose (UA) Urine Ketones Urine Blood Urine Nitrite Urine Bilirubin Urine Urobilinogen Ur Leukocyte Esterase Urine WBC (Auto) Urine RBC (Auto) Ur Epithelial Cells Urine Bacteria Urine Mucus Urine HCG, Qual Negative Blood Type Antibody Screen 07/22/18 07/22/18 07/22/18 06:29 08:53 08:53 WBC 14.1 H RBC 4.41 Hgb 13.1 Hct 39.7 MCV 90.0 MCH 29.8 MCHC 33.1 RDW 12.9 Plt Count 245 MPV 7.7 Absolute Neuts (auto) 12.3 H Neutrophils % 87.7 H Lymphocytes % 9.9 Monocytes % 2.3 L Eosinophils % 0.0 D Basophils % 0.1 Nucleated RBC % 0 PT with INR INR Sodium 141 Potassium 4.1 Chloride 104 Carbon Dioxide 25 Anion Gap 12 BUN 8 Creatinine 0.6 Creat Clearance w eGFR > 60 POC Glucometer 275 Random Glucose 276 H Hemoglobin A1c % Lactic Acid Calcium 8.4 L Phosphorus 3.4 Magnesium 2.1 Total Bilirubin 0.8 AST 29 ALT 44 Alkaline Phosphatase 85 Total Protein 7.0 Albumin 3.3 L Lipase Urine Color Urine Appearance Urine pH Ur Specific [place] Urine Protein Urine Glucose (UA) Urine Ketones Urine Blood Urine Nitrite Urine Bilirubin Urine Urobilinogen Ur Leukocyte Esterase Urine WBC (Auto) Urine RBC (Auto) Ur Epithelial Cells Urine Bacteria Urine Mucus Urine HCG, Qual Blood Type Antibody Screen 07/22/18 07/22/18 08:53 12:22 WBC RBC Hgb Hct MCV MCH MCHC RDW Plt Count MPV Absolute Neuts (auto) Neutrophils % Lymphocytes % Monocytes % Eosinophils % Basophils % Nucleated RBC % PT with INR INR Sodium Potassium Chloride Carbon Dioxide Anion Gap BUN Creatinine Creat Clearance w eGFR POC Glucometer 280 Random Glucose Hemoglobin A1c % 7.8 H Lactic Acid Calcium Phosphorus Magnesium Total Bilirubin AST ALT Alkaline Phosphatase Total Protein Albumin Lipase Urine Color Urine Appearance Urine pH Ur Specific [place] Urine Protein Urine Glucose (UA) Urine Ketones Urine Blood Urine Nitrite Urine Bilirubin Urine Urobilinogen Ur Leukocyte Esterase Urine WBC (Auto) Urine RBC (Auto) Ur Epithelial Cells Urine Bacteria Urine Mucus Urine HCG, Qual Blood Type Antibody Screen Active Medications Generic Name Dose Route Start Last Admin Trade Name Freq PRN Reason Stop Dose Admin Acetaminophen 1,000 mg 07/22/18 13:56 07/22/18 15:04 Ofirmev Injection - IVPB 1,000 mg Q6H PRN Administration PAIN Enoxaparin Sodium 40 mg 07/22/18 10:00 07/22/18 10:05 Lovenox - SQ 40 mg DAILY [facility] Administration Glimepiride 2 mg 07/23/18 07:00 Amaryl - PO DAILY@0700 [facility] Metronidazole 500 mg in 100 mls @ 100 mls/hr 07/22/18 10:00 07/22/18 10:04 Flagyl 500mg Premixed Ivpb - IVPB 100 mls/hr Q8H-IV [facility] Administration Sodium Chloride 1,000 mls @ 125 mls/hr 07/22/18 04:15 07/22/18 04:55 Normal Saline - IV 125 mls/hr ASDIR [facility] Administration Ciprofloxacin/Dextrose 400 mg in 200 mls @ 200 mls/hr 07/22/18 22:00 Cipro 400 Mg Premix Ivpb (Restricted To Id) IVPB BID [facility] Insulin Aspart 1 vial 07/22/18 13:32 Novolog Vial Sliding Scale - SQ ACHS [facility] Protocol Ondansetron HCl 4 mg 07/22/18 04:27 Zofran Injection IVPUSH Q4H PRN NAUSEA AND/OR VOMITING ASSESSMENT/PLAN: Patient is a 43 y/o F with PMHx of von Willebrand disease, Left Ovarian cysts presents with progressive diffuse abdominal pain, worse on the suprapubic and LLQ, for the past 2 days. #Sepsis: likely 2/2 to acute uncomplicated sigmoid diverticulitis - HR 92, WBC 14.5, Temp 102.3 - IV NS @ 125 mls/hr - Continue IV Ciprofloxacin 400mg q12h, IV Flagyl 500mg q8h Day 1. - IV Tylenol 1000mg q6h PRN for pain. May give IV morphine 2mg q4h PRN. - Do not give NSAIDs. Patient has history of VWD. - Zofran 40mg IV PRN for nausea or vomiting. - Can tolerate clear liquids. - ID (Dr. Dejesus) consulted. Recommendations appreciated: - Continue Cipro and Flagyl. - Blood and Urine cultures pending. - CXR shows no acute chest pathology. #Lactic acidosis: resolved - Lactic acid 3.1 --> 2.2 --> 1.0 - Continue Hydration via IV NS @ 125 mls/hr #Hyperglycemia: Diabetes Mellitus - May be due to steroids that was given and the infection. - BGMs ISS qid - A1c 7.8 - Endocrine (Dr. Doherty) consulted. Recommendations appreciated. - Start Glimepiride 2mg daily. - Add Metformin 500mg BID once diet has improved. - Bankruptcy Manager consulted #FEN - IV NS - Lytes wnl, routine bmp testing - NPO for bowel rest #PPx - DVT: Lovenox 40mg SQ #Disposition - Admit to med surg - Full code Visit type - Emergency Visit Emergency Visit: Yes ED Registration Date: 07/22/18 Care time: The patient presented to the Emergency Department on the above date and was hospitalized for further evaluation of their emergent condition. - New Patient This patient is new to me today: Yes Date on this admission: 07/22/18 - Critical Care Critical Care patient: No
--- NOTE | 2018-07-22 15:44 | CONS ---
DATE OF CONSULTATION: 07/22/2018 INFECTIOUS DISEASE CONSULTATION HISTORY OF PRESENT ILLNESS: The patient is a 43-year-old female who is evaluated for acute diverticulitis. She states on the poker in of July 20, she developed left-sided abdominal pain, initially was localized to the left lower quadrant later, became more severe in nature and radiated to the left upper quadrant. She described it as a stabbing type pain which progressively worsened over the next 24 hours. She has associated nausea and vomiting of bilious fluid. She experienced chills and diaphoresis. The patient did have a bowel movement yesterday. She was evaluated in the emergency room where a CAT scan showed acute uncomplicated sigmoid diverticulitis. There was no evidence of perforation or abscess formation. Her course has been complicated by fever to 102. The patient was empirically treated with vancomycin and Zosyn. She apparently developed pruritus after one of the agents and was treated with Benadryl with improvement. She denies prior history of acute diverticulitis. PAST MEDICAL HISTORY: Positive for Von Willebrand disease. ALLERGIES: No known allergies. MEDICATION: Include Zofran, Cipro, Flagyl, Lovenox, Amaryl. SOCIAL HISTORY: She lives at home with her and young children. Former smoker, occasional ETOH. SYSTEMS REVIEW: Neurologic: No loss of consciousness, seizure activity, focal weakness. Cardiac: Negative for chest pain or palpitations. Respiratory: Negative for cough or sputum production. Gastrointestinal: As per HPI. Genitourinary: Negative for urinary tract infection. LABORATORY: White count 14,000, 87 neutrophils, 9 lymphocytes, 2 monocytes, hematocrit 39.7, platelet count 245. Creatinine 0.6, lactic acid 2.2. Liver enzymes normal. Urinalysis negative. Blood cultures are pending. PHYSICAL EXAMINATION: General: On exam, she is supine in bed. She is awake and alert. She appears comfortable. Vital signs: T-max 102.3, blood pressure 125/76, pulse 86 regular, respirations 17 per minute. HEENT: Sclerae anicteric. Cardiovascular: Heart sounds S1, S2. Lungs: Clear. Abdomen: Hypoactive bowel sounds. Extremities: There is tenderness present left lower quadrant and left paraumbilical area. No rigidity. Extremities negative for edema. IMPRESSION: 1. Acute uncomplicated sigmoid diverticulitis. 2. Fever, leukocytosis, rule out sepsis secondary to gastrointestinal source. 3. Lactic acidosis. Await cultures. Continue empiric coverage of gastrointestinal pathogens with ciprofloxacin and Flagyl. Analgesics, IV fluid, hydration, will follow, thank you for the kind referral. BETSY CHAVEZ M.D. [id number]
[2018-07-22 16:51] VITALS: BMI 40.4
[2018-07-22] MEDS: INSULIN SLIDING SCALE (NOVOLOG) 1 VIAL SQ SCH ×2 (18:11→21:59)
[2018-07-22] MEDS ORDERED: INSULIN (NOVOLOG) ASPART 100 UNITS/ML 10ML VIAL ONE (21:18)
[2018-07-22] MEDS: CIPROFLOXACIN 400 MG/D5W 400 MG/200 ML IVPB IVPB SCH (21:57)
[2018-07-22] MEDS ORDERED: CIPROFLOXACIN 400 MG/D5W 400 MG/200 ML IVPB IVPB SCH (22:00)
[2018-07-23] MEDS: SODIUM CHLORIDE 1,000 ML IV SCH (02:00)
[2018-07-23] MEDS ORDERED: GLIMEPIRIDE 2 MG TABLET (FP) PO SCH (07:00)
[2018-07-23] MEDS ORDERED: INSULIN (NOVOLOG) ASPART 100 UNITS/ML 10ML VIAL ONE (07:07)
[2018-07-23] MEDS: INSULIN SLIDING SCALE (NOVOLOG) 1 VIAL SQ SCH ×3 (07:09→17:54)
[2018-07-23 07:11] LABS: BASO % 0.1 % (0-2.0); EOS % 0.1 % (0-4.5); HEMATOCRIT 32.9 % (32.4-45.2); HEMOGLOBIN 11.1 GM/dL (10.7-15.3); LYMPH % 20.6 % (8-40); MCH 30.2 pg (25.7-33.7); MCHC 33.8 g/dl (32.0-36.0); MEAN CELL VOLUME 89.3 fl (80-96); MEAN PLT VOLUME 8.1 fl (7.5-11.1); MONO % 5.2 % (3.8-10.2); PLATELET COUNT 229 K/MM3 (134-434); RBC 3.69 M/mm3 (3.60-5.2); WHITE BLOOD COUNT 12.8 K/mm3 (4.0-10.0)
[2018-07-23] MEDS ORDERED: ACETAMINOPHEN 325 MG TABLET (FP) PO PRN ×2 (07:16→14:45)
[2018-07-23 08:03] LABS: CHLORIDE 106 mmol/L (98-107); POTASSIUM 4.1 mmol/L (3.5-5.1); SODIUM 141 mmol/L (136-145)
[2018-07-23 08:17] LABS: ALBUMIN 2.7 g/dl (3.4-5.0); ALK PHOS 76 U/L (45-117); ANION GAP 7 MMOL/L (8-16); BILIRUBIN,TOTAL 0.5 mg/dL (0.2-1.0); BLOOD UREA NITROGEN 9 mg/dL (7-18); CO2 28 mmol/L (21-32); CREATININE 0.5 mg/dL (0.55-1.3); GLUCOSE,RANDOM 172 mg/dL (74-106); MAGNESIUM 2.4 mg/dL (1.8-2.4); PHOSPHOROUS 1.9 mg/dL (2.5-4.9); SGOT/AST 40 U/L (15-37); SGPT/ALT 49 U/L (13-61)
[2018-07-23] MEDS ORDERED: SODIUM CHLORIDE 1,000 ML IV SCH (08:52)
--- NOTE | 2018-07-23 08:58 | PN ---
Teaching Attending Note Name of Resident: Danisha Armstrong ATTENDING PHYSICIAN STATEMENT I saw and evaluated the patient. I reviewed the resident's note and discussed the case with the resident. I agree with the resident's findings and plan as documented with exceptions below. SUBJECTIVE: Patient seen and examined. Abdominal pain markedly improved. No further nausea, vomiting. Had a BM yesterday that was non bloody, well formed. OBJECTIVE: Vital Signs Period Temp Pulse Resp BP Sys/Borrero Pulse Ox Last 24 Hr 97.5 F-98.2 F 60-69 17-20 109-135/54-80 97-97 Intake & Output 07/20/18 07/21/18 07/22/18 07/23/18 23:59 23:59 23:59 23:59 Intake Total 1400 1400 Balance 1400 1400 Weight 236 lb 243 lb General: lying in bed in no acute distress Chest: CTAB, no rales or wheezing Abdomen:Soft, minimal LLQ tenderness, otherwise NT throughout, no voluntary or involuntary guarding or rigidity, positive bowel sounds Extremities: no edema Active Medications Acetaminophen (Tylenol -) 650 mg PO Q6H PRN PRN Reason: Fever Or Pain Level 1-5 Last Admin: 07/23/18 08:12 Dose: 650 mg Glimepiride (Amaryl -) 2 mg PO DAILY@0700 [facility] Last Admin: 07/23/18 06:35 Dose: 2 mg Metronidazole (Flagyl 500mg Premixed Ivpb -) 500 mg in 100 mls @ 100 mls/hr IVPB Q8H-IV [facility] Last Admin: 07/23/18 02:53 Dose: 100 mls/hr Ciprofloxacin/Dextrose (Cipro 400 Mg Premix Ivpb (Restricted To Id)) 400 mg in 200 mls @ 200 mls/hr IVPB BID [facility] Last Admin: 07/22/18 21:57 Dose: 200 mls/hr Sodium Phosphate 15 mm/ Sodium (Chloride) 255 mls @ 63.75 mls/hr IVPB ONCE ONE Stop: 07/23/18 12:59 Sodium Chloride (Normal Saline -) 1,000 mls @ 75 mls/hr IV ASDIR [facility] Insulin Aspart (Novolog Vial Sliding Scale -) 1 vial SQ ACHS [facility]; Protocol Last Admin: 07/23/18 07:09 Dose: Not Given Ondansetron HCl (Zofran Injection) 4 mg IVPUSH Q4H PRN PRN Reason: NAUSEA AND/OR VOMITING Laboratory Results - last 24 hr 07/22/18 07/22/18 07/22/18 08:53 08:53 08:53 WBC 14.1 H RBC 4.41 Hgb 13.1 Hct 39.7 MCV 90.0 MCH 29.8 MCHC 33.1 RDW 12.9 Plt Count 245 MPV 7.7 Absolute Neuts (auto) 12.3 H Neutrophils % 87.7 H Lymphocytes % 9.9 Monocytes % 2.3 L Eosinophils % 0.0 D Basophils % 0.1 Nucleated RBC % 0 Sodium 141 Potassium 4.1 Chloride 104 Carbon Dioxide 25 Anion Gap 12 BUN 8 Creatinine 0.6 Creat Clearance w eGFR > 60 POC Glucometer Random Glucose 276 H Hemoglobin A1c % 7.8 H Calcium 8.4 L Phosphorus 3.4 Magnesium 2.1 Total Bilirubin 0.8 AST 29 ALT 44 Alkaline Phosphatase 85 Total Protein 7.0 Albumin 3.3 L 07/22/18 07/22/18 07/22/18 12:22 18:07 21:59 WBC RBC Hgb Hct MCV MCH MCHC RDW Plt Count MPV Absolute Neuts (auto) Neutrophils % Lymphocytes % Monocytes % Eosinophils % Basophils % Nucleated RBC % Sodium Potassium Chloride Carbon Dioxide Anion Gap BUN Creatinine Creat Clearance w eGFR POC Glucometer 280 245 225 Random Glucose Hemoglobin A1c % Calcium Phosphorus Magnesium Total Bilirubin AST ALT Alkaline Phosphatase Total Protein Albumin 07/23/18 07/23/18 07/23/18 06:10 06:10 06:35 WBC 12.8 H RBC 3.69 Hgb 11.1 Hct 32.9 D MCV 89.3 MCH 30.2 MCHC 33.8 RDW 13.0 Plt Count 229 MPV 8.1 Absolute Neuts (auto) 9.5 H Neutrophils % 74.0 Lymphocytes % 20.6 D Monocytes % 5.2 D Eosinophils % 0.1 D Basophils % 0.1 Nucleated RBC % 0 Sodium 141 Potassium 4.1 Chloride 106 Carbon Dioxide 28 Anion Gap 7 L BUN 9 Creatinine 0.5 L Creat Clearance w eGFR > 60 POC Glucometer 179 Random Glucose 172 H Hemoglobin A1c % Calcium 8.0 L Phosphorus 1.9 L Magnesium 2.4 Total Bilirubin 0.5 AST 40 H ALT 49 Alkaline Phosphatase 76 Total Protein 6.0 L Albumin 2.7 L Microbiology 07/21/18 21:35 Blood - Peripheral Venous Blood Culture - Preliminary NO GROWTH OBTAINED AFTER 24 HOURS, INCUBATION TO CONTINUE FOR 4 DAYS. 07/21/18 21:35 Blood - Peripheral Venous Blood Culture - Preliminary NO GROWTH OBTAINED AFTER 24 HOURS, INCUBATION TO CONTINUE FOR 4 DAYS. ASSESSMENT AND PLAN: 43 yof with PMhx of VWD, thrombophilia, ovarian cyst admitted with Acute sigmoid diverticulitis and new onset DM -Acute uncomplicated sigmoid diverticulitis with sepsis -New Onset DM, likely Type II based on body habitus/onset -Transient flushig/pruritis, ?from vanco infusion vs contrast -Von [place] disease -Thrombophilia -Ovarian cyst Plan: Ciprofloxacin/flagyl day 2, blood cx neg so far. ID input noted. Markedly improved.Advance to full liquids, and solids later today if no concerns. Serial abdominal exams. Avoid NSAIDs given h/o VWD Tylenol/morphine prn as tolerated. Endocrine input noted. A1c 7.8. Patient adamantly declines finger sticks checks and insulin at this time. Reports being told by Dr. Doherty about non invasive blood glucose monitoring. Continue glimepiride, BGM, diabetic diet. Outpatient endocrine follow up. Dietary consult. Flushing/pruritus resolved. ?vanco mediated vs contrast. Informed patient of the same and advised to notify future providers of the same. Monitor for now. DVTPPX SCDs and encourage ambulation. avoid lovenox given VWD and ambulatory inhouse. Dispo d/c in 24 hours on pO abx if tolerating diet well, and no new concerns. Plan discussed with patient in detail, all questions answered.
[2018-07-23] MEDS ORDERED: SODIUM PHOSPHATE - 15 MM in SODIUM CHLORIDE 250 ML IVPB ONE (09:00)
--- NOTE | 2018-07-23 09:16 | PN ---
Physical Exam: SUBJECTIVE: Patient seen and examined OBJECTIVE: Vital Signs Period Temp Pulse Resp BP Sys/Borrero Pulse Ox Last 24 Hr 97.5 F-98.2 F 60-69 17-20 109-135/54-80 97 GENERAL: The patient is awake, alert, and fully oriented, in no acute distress. HEAD: Normal with no signs of trauma. EYES: PERRL, extraocular movements intact, sclera anicteric, conjunctiva clear. No ptosis. ENT: Ears normal, nares patent, oropharynx clear without exudates, moist mucous membranes. NECK: Trachea midline, full range of motion, supple. LUNGS: Breath sounds equal, clear to auscultation bilaterally, no wheezes, no crackles, no accessory muscle use. HEART: Regular rate and rhythm, S1, S2 without murmur, rub or gallop. ABDOMEN: Soft, nontender, nondistended, normoactive bowel sounds, no guarding, no rebound, no hepatosplenomegaly, no masses. EXTREMITIES: 2+ pulses, warm, well-perfused, no edema. NEUROLOGICAL: Cranial nerves II through XII grossly intact. Normal speech, gait not observed. PSYCH: Normal mood, normal affect. SKIN: Warm, dry, normal turgor, no rashes or lesions noted Laboratory Results - last 24 hr 07/22/18 07/22/18 07/22/18 08:53 08:53 08:53 WBC 14.1 H RBC 4.41 Hgb 13.1 Hct 39.7 MCV 90.0 MCH 29.8 MCHC 33.1 RDW 12.9 Plt Count 245 MPV 7.7 Absolute Neuts (auto) 12.3 H Neutrophils % 87.7 H Lymphocytes % 9.9 Monocytes % 2.3 L Eosinophils % 0.0 D Basophils % 0.1 Nucleated RBC % 0 Sodium 141 Potassium 4.1 Chloride 104 Carbon Dioxide 25 Anion Gap 12 BUN 8 Creatinine 0.6 Creat Clearance w eGFR > 60 POC Glucometer Random Glucose 276 H Hemoglobin A1c % 7.8 H Calcium 8.4 L Phosphorus 3.4 Magnesium 2.1 Total Bilirubin 0.8 AST 29 ALT 44 Alkaline Phosphatase 85 Total Protein 7.0 Albumin 3.3 L 07/22/18 07/22/18 07/22/18 12:22 18:07 21:59 WBC RBC Hgb Hct MCV MCH MCHC RDW Plt Count MPV Absolute Neuts (auto) Neutrophils % Lymphocytes % Monocytes % Eosinophils % Basophils % Nucleated RBC % Sodium Potassium Chloride Carbon Dioxide Anion Gap BUN Creatinine Creat Clearance w eGFR POC Glucometer 280 245 225 Random Glucose Hemoglobin A1c % Calcium Phosphorus Magnesium Total Bilirubin AST ALT Alkaline Phosphatase Total Protein Albumin 07/23/18 07/23/18 07/23/18 06:10 06:10 06:35 WBC 12.8 H RBC 3.69 Hgb 11.1 Hct 32.9 D MCV 89.3 MCH 30.2 MCHC 33.8 RDW 13.0 Plt Count 229 MPV 8.1 Absolute Neuts (auto) 9.5 H Neutrophils % 74.0 Lymphocytes % 20.6 D Monocytes % 5.2 D Eosinophils % 0.1 D Basophils % 0.1 Nucleated RBC % 0 Sodium 141 Potassium 4.1 Chloride 106 Carbon Dioxide 28 Anion Gap 7 L BUN 9 Creatinine 0.5 L Creat Clearance w eGFR > 60 POC Glucometer 179 Random Glucose 172 H Hemoglobin A1c % Calcium 8.0 L Phosphorus 1.9 L Magnesium 2.4 Total Bilirubin 0.5 AST 40 H ALT 49 Alkaline Phosphatase 76 Total Protein 6.0 L Albumin 2.7 L Active Medications Generic Name Dose Route Start Last Admin Trade Name Freq PRN Reason Stop Dose Admin Acetaminophen 650 mg 07/23/18 07:16 07/23/18 08:12 Tylenol - PO 650 mg Q6H PRN Administration Fever Or Pain Level 1-5 Glimepiride 2 mg 07/23/18 07:00 07/23/18 06:35 Amaryl - PO 2 mg DAILY@0700 [facility] Administration Metronidazole 500 mg in 100 mls @ 100 mls/hr 07/22/18 10:00 07/23/18 02:53 Flagyl 500mg Premixed Ivpb - IVPB 100 mls/hr Q8H-IV [facility] Administration Ciprofloxacin/Dextrose 400 mg in 200 mls @ 200 mls/hr 07/22/18 22:00 21:57 Cipro 400 Mg Premix Ivpb (Restricted To Id) IVPB 200 mls/hr BID [facility] Administration Sodium Phosphate 15 mm/ Sodium 255 mls @ 63.75 mls/hr 07/23/18 09:00 Chloride IVPB 07/23/18 12:59 ONCE ONE 15 MM/4 HR Sodium Chloride 1,000 mls @ 75 mls/hr 07/23/18 08:52 Normal Saline - IV ASDIR [facility] Insulin Aspart 1 vial 07/22/18 13:32 07/23/18 07:09 Novolog Vial Sliding Scale - SQ Not Given ACHS [facility] Protocol Ondansetron HCl 4 mg 07/22/18 04:27 Zofran Injection IVPUSH Q4H PRN NAUSEA AND/OR VOMITING Imaging: CT abdomen/pelvis Acute uncomplicated sigmoid diverticulitis is seen. Prominent diffuse hepatic steatosis. A 1.3 cm left adrenal nodule is seen probably representing an adenoma. Biochemical evaluation is suggested as well as a 3 month follow-up noncontrast CT or MRI to evaluate stability. CXR No acute chest pathology. No sign of a pneumoperitoneum. ASSESSMENT/PLAN: Patient is a 43 y/o F with PMHx of von Willebrand disease, Left Ovarian cysts presents with progressive diffuse abdominal pain, worse on the suprapubic and LLQ, for the past 2 days. #Sepsis: likely 2/2 to acute uncomplicated sigmoid diverticulitis - Patient reports improvement of abdominal pain. - WBC 12.8 from 14.5 - Continue IV NS @ 125 mls/hr - Continue IV Ciprofloxacin 400mg q12h, IV Flagyl 500mg q8h Day 2. - Tylenol 650 mg PO PRN for pain. - Do not give NSAIDs. Patient has history of VWD. - Zofran 40mg IV PRN for nausea or vomiting. - Can tolerate clear liquids. Will advance to full liquids for breakfast then solid diet for lunch. - ID (Dr. Dejesus) consulted. Recommendations appreciated: - Continue IV Cipro and Flagyl. - Blood and urine cultures -- negative. #Lactic acidosis: resolved - Lactic acid 3.1 --> 2.2 --> 1.0 - Continue Hydration via IV NS @ 125 mls/hr #Hyperglycemia: Diabetes Mellitus - BGMs ISS qid - A1c 7.8 - Endocrine (Dr. Doherty) consulted. Recommendations appreciated. - Continue Glimepiride 2mg daily. - Metformin 500mg BID once diet has improved. - Test Desk Operator consulted #FEN - IV NS - Hypophosphatemia, will give sodium Phosphate. - Will advance to full liquids for breakfast then solid diet for lunch. #PPx - d/c Lovenox - Pt is ambulatory. #Disposition - Admit to med surg - Full code Visit type - Emergency Visit Emergency Visit: Yes ED Registration Date: 07/22/18 Care time: The patient presented to the Emergency Department on the above date and was hospitalized for further evaluation of their emergent condition. - New Patient This patient is new to me today: Yes Date on this admission: 07/23/18 - Critical Care Critical Care patient: No
[2018-07-23] MEDS ORDERED: PT OWN MED DRAWER 7, Y5N ONE (10:17)
[2018-07-23] MEDS: CIPROFLOXACIN 400 MG/D5W 400 MG/200 ML IVPB IVPB SCH (11:19)
--- NOTE | 2018-07-23 13:44 | PN ---
Progress Note, Physician History of Present Illness: Feeling better Abdominal pain much improved Tolerating solid diet Reports having normal BM today No fever/ chills Temps down WBC improved BC (-) - Current Medication List Current Medications: Active Medications Acetaminophen (Tylenol -) 650 mg PO Q6H PRN PRN Reason: Fever Or Pain Level 1-5 Last Admin: 07/23/18 08:12 Dose: 650 mg Glimepiride (Amaryl -) 2 mg PO DAILY@0700 [facility] Last Admin: 07/23/18 06:35 Dose: 2 mg Metronidazole (Flagyl 500mg Premixed Ivpb -) 500 mg in 100 mls @ 100 mls/hr IVPB Q8H-IV [facility] Last Admin: 07/23/18 10:22 Dose: 100 mls/hr Ciprofloxacin/Dextrose (Cipro 400 Mg Premix Ivpb (Restricted To Id)) 400 mg in 200 mls @ 200 mls/hr IVPB BID [facility] Last Admin: 07/23/18 11:19 Dose: 200 mls/hr Sodium Chloride (Normal Saline -) 1,000 mls @ 75 mls/hr IV ASDIR [facility] Last Admin: 07/23/18 10:21 Dose: 75 mls/hr Insulin Aspart (Novolog Vial Sliding Scale -) 1 vial SQ ACHS [facility]; Protocol Last Admin: 07/23/18 11:21 Dose: Not Given Ondansetron HCl (Zofran Injection) 4 mg IVPUSH Q4H PRN PRN Reason: NAUSEA AND/OR VOMITING - Objective Vital Signs: Vital Signs Temperature 97.8 F 07/23/18 10:00 Pulse Rate 62 07/23/18 10:00 Respiratory Rate 18 07/23/18 10:00 Blood Pressure 120/84 07/23/18 10:00 O2 Sat by Pulse Oximetry (%) 97 07/22/18 21:00 Constitutional: Yes: No Distress Eyes: Yes: Conjunctiva Clear Cardiovascular: Yes: Regular Rate and Rhythm, S1, S2 Respiratory: Yes: CTA Bilaterally Gastrointestinal: Yes: Normal Bowel Sounds, Soft, Abdomen, Obese. No: Tenderness Edema: No Labs: CBC, BMP 07/23/18 06:10 07/23/18 06:10 INR, PTT INR 1.06 (0.83-1.09) 07/21/18 20:42 Assessment/Plan Acute uncomplicated sigmoid diverticulitis Fever/ leukocytosis- improved May substitute po cipro/ flagyl for additional 10d Outpatient GI follow up
--- NOTE | 2018-07-23 16:25 | DS ---
Physical Exam: SUBJECTIVE: Patient seen and examined at bedside this morning. No acute events overnight. Patient reports improvement of the abdominal pain and is able to tolerate regular diet with no nausea or vomiting. she also reports good bowel movement. OBJECTIVE: Vital Signs Period Temp Pulse Resp BP Sys/Borrero Pulse Ox Last 24 Hr 97.5 F-98.1 F 60-71 17-20 109-135/54-84 96-97 PHYSICAL EXAM GENERAL: The patient is awake, alert, and fully oriented, in no acute distress. HEAD: Normal with no signs of trauma. EYES: PERRLA, EOMI, sclera anicteric, conjunctiva clear. ENT: Ears normal, nares patent, oropharynx clear without exudates, moist mucous membranes. NECK: Trachea midline, full range of motion, supple. LUNGS: Breath sounds equal, clear to auscultation bilaterally. HEART: Regular rate and rhythm, S1, S2 without murmur, rub or gallop. ABDOMEN: Soft, +tenderness on palpation to LLQ, nondistended, normoactive bowel sounds. EXTREMITIES: 2+ pulses, warm, well-perfused, no edema. NEUROLOGICAL: Cranial nerves II through XII grossly intact. Normal speech, gait not observed. PSYCH: Normal mood, normal affect. SKIN: Warm, dry, normal turgor, no rashes or lesions noted. LABS Laboratory Results - last 24 hr 07/22/18 07/22/18 07/23/18 18:07 21:59 06:10 WBC 12.8 H RBC 3.69 Hgb 11.1 Hct 32.9 D MCV 89.3 MCH 30.2 MCHC 33.8 RDW 13.0 Plt Count 229 MPV 8.1 Absolute Neuts (auto) 9.5 H Neutrophils % 74.0 Lymphocytes % 20.6 D Monocytes % 5.2 D Eosinophils % 0.1 D Basophils % 0.1 Nucleated RBC % 0 Sodium Potassium Chloride Carbon Dioxide Anion Gap BUN Creatinine Creat Clearance w eGFR POC Glucometer 245 225 Random Glucose Calcium Phosphorus Magnesium Total Bilirubin AST ALT Alkaline Phosphatase Total Protein Albumin 07/23/18 07/23/18 07/23/18 06:10 06:35 11:20 WBC RBC Hgb Hct MCV MCH MCHC RDW Plt Count MPV Absolute Neuts (auto) Neutrophils % Lymphocytes % Monocytes % Eosinophils % Basophils % Nucleated RBC % Sodium 141 Potassium 4.1 Chloride 106 Carbon Dioxide 28 Anion Gap 7 L BUN 9 Creatinine 0.5 L Creat Clearance w eGFR > 60 POC Glucometer 179 156 Random Glucose 172 H Calcium 8.0 L Phosphorus 1.9 L Magnesium 2.4 Total Bilirubin 0.5 AST 40 H ALT 49 Alkaline Phosphatase 76 Total Protein 6.0 L Albumin 2.7 L Imaging: CT abdomen/pelvis Acute uncomplicated sigmoid diverticulitis is seen. Prominent diffuse hepatic steatosis. A 1.3 cm left adrenal nodule is seen probably representing an adenoma. Biochemical evaluation is suggested as well as a 3 month follow-up noncontrast CT or MRI to evaluate stability. CXR No acute chest pathology. No sign of a pneumoperitoneum. HOSPITAL COURSE: Date of Admission:07/22/18 Date of Discharge: 07/23/18 Patient is a 43 y/o F with PMHx of von Willebrand disease, Left Ovarian cysts presents with progressive diffuse abdominal pain, worse on the suprapubic and LLQ, for the past 2 days. Patient was admitted for acute uncomplicated sigmoid diverticulitis. She was started on IV Ciprofloxacin 400mg q12h and Flagyl 500mg q8h. She was put on NPO and given IV fluids. Blood and urine cultures were negative. Patient's abdominal pain continue to improve and she was able to tolerate regular diet. She was discharged with instructions to continue PO ciprofloxacin and flagyl for 10 days and to follow-up with GI for colonoscopy in 6-8 weeks. Patient was also noted to have hyperglycemia with HbA1c of 7.8. Endocrinology was consulted. She was started on Glimepiride 2mg daily and instructed to continue taking it at home. She was counseled with proper diet and exercise and to monitor blood glucose regularly. Minutes to complete discharge: 40 Discharge Summary Reason For Visit: DIVERTICULITIS Current Active Problems Diverticulitis (Acute) Type 2 diabetes mellitus with hyperosmolarity without nonketotic hyperglycemic- hyperosmolar coma ([facility]) (Acute) Condition: Improved - Instructions Diet, Activity, Other Instructions: You were admitted because you had severe belly pain. CT scan was done and revealed sigmoid diverticulitis. It is the inflammation/ infection of the small pouches called diverticula that develop along the lining of the intestines. You were started on IV antibiotics, and initially did not give you any food so your bowels could rest. We slowly advanced your diet, which you tolerated well. Please continue taking the following antibiotics at home as prescribed: 1. Ciprofloxacin 500mg twice daily for 10 days. 2. Metronidazole (Flagyl) 500mg three times a day for 10 days. DIET: Ensure diabetic diet. Advise low residue diet for now till symptoms fully resolve. Then advised to eat a high-fiber diet in small, frequent meals. Avoid fatty foods and those high in sugar. This can worsen your symptoms. ACTIVITY: Rest and light activity till symptoms resolve, advance as tolerated. Drink plenty of fluids. Please follow-up with your GI doctor. If you do not have one, you can call Dr. Mason's (solar photovoltaic systems engineer) office to schedule an appointment for a colonoscopy in 6-8 weeks. You were also found to have elevated blood sugar. Dr. Doherty (wrister ) started you on new medication, Glimeripide 2mg daily, which you will continue taking at home. We encourage you to check your blood glucose twice a day. This medication can cause hypoglycemia or low blood sugar. Low blood sugar symptoms have been discussed with you. Please ensure that you keep sugar pills or candies handy always. If you have any sweating, weakness, confusion, headache, nausea or vomiting, please call 911 or go to the ED immediately. The final results of your blood cultures can take upto 5 days, you will be notified of abnormal results, you can have your doctor follow up on results in 2 -3 days. Please follow-up with Dr. Doherty within 1 week for management of the diabetes. Please follow-up with your primary care doctor within 1 week. Call 911 or go to the ED for any worsening fevers, chills, abdominal pain, inability to eat, dark or bloody stools or any new concerns noted. Referrals: Charles Mason MD [Staff Physician] - Artur Doherty MD [Staff Physician] - 1 Week Celeste Jung MD [Primary Care Provider] - 1 Week Disposition: HOME - Home Medications Comprehensive Discharge Medication List: Ambulatory Orders Ciprofloxacin [Cipro -] 500 mg PO Q12H #20 tablet 07/23/18 Glimepiride [Amaryl -] 2 mg PO DAILY@0700 #30 tablet 07/23/18 [facility] [employer] [Glucometer Device] 1 each .ROUTE ASDIR #1 kit [facility] [employer] [Glucometer Test Strips #100] 1 each .ROUTE ASDIR # 1 box 07/23/18 metroNIDAZOLE [Flagyl -] 500 mg PO TID #30 tablet 07/23/18 This patient is new to me today: Yes Date on this admission: 07/24/18 Emergency Visit: Yes ED Registration Date: 07/22/18 Care time: The patient presented to the Emergency Department on the above date and was hospitalized for further evaluation of their emergent condition. Critical Care patient: No - Discharge Referral Referred to [facility] Med P.C.: No
[2018-07-23 19:04] VITALS: BP 127/74; PULSE 64; TEMP 97.7
== END 2018-07-23 19:24 | disposition home or self-care (01) | DRG 872 ==
LOC: JER 19:15 → JERBED 07-22 00:52 → J5S 07-22 05:03
PROVIDERS: ADMIT Internal Medicine; ATTEND Hospitalist
DX: A41.9 Sepsis, unspecified organism (principal); K57.32 Diverticulitis of large intestine without perforation or abscess without bleeding; D68.0 Von Willebrand disease; D68.59 Other primary thrombophilia; Z68.41 Body mass index [BMI] 40.0-44.9, adult; N83.202 Unspecified ovarian cyst, left side; E66.01 Morbid (severe) obesity due to excess calories; Z87.891 Personal history of nicotine dependence; E11.8 Type 2 diabetes mellitus with unspecified complications
CPT/HCPCS: 36415; 71045-TC-FY; 74177-TC; 80053; 81003; 81015; 82962; 83036; 83605; 83690; 83735; 84100; 84703; 85025; 85610; 86850; 86900; 86901; 87040; 87086; 93005; 93010; 99285-25; J0131; J7030

== ENCOUNTER 2019-01-30 19:38 | Emergency (ER) | payer OTHER ==
[2019-01-30 19:58] VITALS: TEMP 98.4; BMI 40.7
[2019-01-30 20:17] LABS: HCG,QUALITATIVE URINE Negative
--- NOTE | 2019-01-30 21:12 | PDOC ---
History of Present Illness - General History Source: Patient Exam Limitations: No Limitations - History of Present Illness Initial Comments: 01/30/19 22:17 The patient is a 43 year old female, with a significant past medical history of Von Willebrand's, hemorrhagic left ovarian cyst, and diverticulitis (Jul, 2018 ) who presents emergency Department with abdominal pain starting at 2am. The patient states the abdominal pain is sharp, stabbing, and has progressively gotten worse. The patient states her abdominal pain is exacerbated by motion and deep breathing. The patient reports her abdominal pain is accompanied with nausea, diarrhea and vomiting, however, her diarrhea and vomiting have since resolved. The patient states her temperature at home was 101. The patient reports she went to [facility], waited for 4 hrs and was given tylenol with no relief. Patient reports nausea and inability to tolerate oral food or drinks for the past 24 hours. The patient denies recent travel or sick contacts and her last bowel movement was yesterday morning. The patient denies chest pain, shortness of breath, headache or dizziness. The patient denies fever, chills, or constipation. The patient denies dysuria, frequency, urgency or hematuria. PAST MEDICAL HISTORY: Von Willenbrand's, hemorrhagic left ovarian removal SURGICAL HISTORY: Denies ALLERGIES: No known drug allergies PCP: Dr. Celeste Jung <Lucas Peoples - Last Filed: 01/30/19 22:17> <Elsy Breen - Last Filed: 01/31/19 04:23> - General Chief Complaint: Pain Stated Complaint: ABDOMINAL & CHEST PAIN Time Seen by Provider: 01/30/19 19:43 Past History <Lucas Peoples - Last Filed: 01/30/19 22:17> - Past Medical History Anemia: No Asthma: Yes Cancer: No Cardiac Disorders: No CVA: No COPD: No CHF: No Dementia: No Diabetes: No GI Disorders: Yes (DIVERTICULITIS) Disorders: No HTN: No Hypercholesterolemia: No Liver Disease: No Seizures: No Thyroid Disease: No - Surgical History Abdominal Surgery: No Appendectomy: No Cardiac Surgery: No Cholecystectomy: No Lung Surgery: No Neurologic Surgery: No Orthopedic Surgery: No - Suicide/Smoking/Psychosocial Hx Smoking History: Never smoked Have you smoked in the past 12 months: No If you are a former smoker, when did you quit?: 2000 Hx Alcohol Use: Yes (OCCASIONAL) Drug/Substance Use Hx: No Substance Use Type: Alcohol <Elsy Breen - Last Filed: 01/31/19 04:23> - Past Medical History Allergies/Adverse Reactions: Allergies Allergy/AdvReac Type Severity Reaction Status Date / Time No Known Allergies Allergy Verified 01/30/19 19:42 Home Medications: Ambulatory Orders Acetaminophen 1,000 mg PO ONCE 01/30/19 Ondansetron [Zofran Odt -] 4 mg SL TID PRN #12 od.tablet 01/31/19 Pantoprazole Sodium [Protonix -] 40 mg PO DAILY #20 tablet.ec 01/31/19 Review of Systems - Review of Systems Able to Perform ROS?: Yes Comments:: 01/30/19 22:18 GENERAL/CONSTITUTIONAL: No fever or chills. No weakness. HEAD, EYES, EARS, NOSE AND THROAT: No change in vision. No ear pain or discharge. No sore throat. CARDIOVASCULAR: No chest pain or shortness of breath. RESPIRATORY: No cough, wheezing, or hemoptysis. GASTROINTESTINAL: (+) nausea, vomiting, diarrhea. No constipation. GENITOURINARY: No dysuria, frequency, or change in urination. MUSCULOSKELETAL: (+) abdominal pain. No joint or muscle swelling or pain. No neck or back pain. SKIN: No rash NEUROLOGIC: No headache, vertigo, loss of consciousness, or change in strength/ sensation. ENDOCRINE: No increased thirst. No abnormal weight change. HEMATOLOGIC/LYMPHATIC: No anemia, easy bleeding, or history of blood clots. ALLERGIC/IMMUNOLOGIC: No hives or skin allergy. All Other Systems: Reviewed and Negative <Lucas Peoples - Last Filed: 01/30/19 22:17> *Physical Exam - Vital Signs Last Vital Signs Temp Pulse Resp BP Pulse Ox 98.4 F 89 18 146/88 95 01/30/19 19:40 01/30/19 19:40 01/30/19 19:40 01/30/19 19:40 01/30/19 19:40 - Physical Exam Comments: 01/30/19 22:19 GENERAL: Awake, alert, and fully oriented, in no acute distress HEAD: No signs of trauma EYES: PERRLA, EOMI, sclera anicteric, conjunctiva clear ENT: Auricles normal inspection, hearing grossly normal, nares patent, oropharynx clear without exudates. (+) Dry mucosa NECK: Normal ROM, supple, no lymphadenopathy, JVD, or masses LUNGS: Breath sounds equal, clear to auscultation bilaterally. No wheezes, and no crackles HEART: Regular rate and rhythm, normal S1 and S2, no murmurs, rubs or gallops ABDOMEN:(+) Epigastric and RUQ moderate tenderness at [place] sign. (+) Hypoactive bowel signs. No guarding, no rebound. No masses EXTREMITIES: Normal range of motion, no edema. No clubbing or cyanosis. No cords, erythema, or tenderness NEUROLOGICAL: Cranial nerves II through XII grossly intact. Normal speech, normal gait SKIN: Warm, Dry, normal turgor, no rashes or lesions noted. <Lucas Peoples - Last Filed: 01/30/19 22:17> - Vital Signs Last Vital Signs Temp Pulse Resp BP Pulse Ox 98.4 F 89 18 146/88 95 01/30/19 19:40 01/30/19 19:40 01/30/19 19:40 01/30/19 19:40 01/30/19 19:40 <Elsy Breen - Last Filed: 01/31/19 04:23> ED Treatment Course - LABORATORY CBC & Chemistry Diagram: 01/30/19 21:25 01/30/19 21:25 - ADDITIONAL ORDERS Additional order review: Laboratory Results 01/30/19 01/30/19 21:25 20:00 Sodium 133 L Potassium 4.2 Chloride 96 L Carbon Dioxide 25 Anion Gap 12 BUN 11 Creatinine 0.6 Creat Clearance w eGFR 109.11 Random Glucose 152 H Calcium 8.9 Total Bilirubin 1.4 H AST 48 H ALT 39 Alkaline Phosphatase 73 Total Protein 6.9 Albumin 3.8 Urine Color Yellow Urine Appearance Clear Urine pH 6.0 Urine Protein 1+ Urine Glucose (UA) Negative Urine Ketones 3+ H Urine Blood Negative Urine Nitrite Negative Urine Bilirubin 1+ H Urine Urobilinogen 1.0 Ur Leukocyte Esterase Negative Urine WBC (Auto) 0-2 Urine RBC (Auto) 0-2 U Epithel Cells (Auto) Few Urine Bacteria (Auto) 1+ Urine HCG, Qual Negative 01/30/19 21:25 RBC 4.73 MCV 90.1 MCHC 32.9 RDW 12.6 MPV 7.8 Neutrophils % 80.6 Lymphocytes % 14.9 Monocytes % 3.9 Eosinophils % 0.4 Basophils % 0.2 <Lucas Peoples - Last Filed: 01/30/19 22:17> - LABORATORY CBC & Chemistry Diagram: 01/30/19 21:25 01/30/19 21:25 - ADDITIONAL ORDERS Additional order review: Laboratory Results 01/30/19 20:00 Urine Color Yellow Urine Appearance Clear Urine pH 6.0 Urine Protein 1+ Urine Glucose (UA) Negative Urine Ketones 3+ H Urine Blood Negative Urine Nitrite Negative Urine Bilirubin 1+ H Urine Urobilinogen 1.0 Ur Leukocyte Esterase Negative Urine HCG, Qual Negative <Elsy Breen - Last Filed: 01/31/19 04:23> Medical Decision Making - Medical Decision Making Documentation has been prepared under my direction and personally reviewed by me in its entirety. I attest that this documented accurately reflects all work, treatment, procedures and medical decision making performed by me. As noted above, this 43-year-old woman with a history of von Willebrand's/ ovarian cyst and diverticulitis presents with approximately 18 hour history of epigastric/right upper quadrant pain. She initially had nausea/vomiting/ diarrhea which essentially has resolved. No known contacts and no recent travel. Exam as noted. Because of patient's significant right upper quadrant/epigastric tenderness ( including a positive [place] sign), abdominal/pelvic CT performed to evaluate for acute upper abdominal pathologic processes (patient did not have an ultrasound for evaluation since she is grossly overweight; interpretation of ultrasound might be limited) Abdominal/pelvic CT interpreted by Imaging customer consulting manager: No evidence of acute pathology Clinical presentation most consistent with acute gastric problem such as gastritis, severe GERD, peptic ulcer disease Patient had received 2 mg of morphine/4 mg of Zofran IV prior to CT scan. Patient states that she has some residual epigastric pain after the above medications, although the other symptoms are significantly better Patient is also given Protonix 40 mg IV to control acid levels in her stomach Patient was discharged with prescriptions for Protonix 40 mg daily and Zofran ODT 4 mg up to 3 times a day as needed for nausea/vomiting. Patient should follow-up with her doctor within the next 3-4 days <Elsy Breen - Last Filed: 01/31/19 04:23> *DC/Admit/Observation/Transfer - Attestations Scribe Attestion: 01/30/19 22:19 Documentation prepared by Lucas Peoples, acting as medical receptionist assistant for Elsy Breen MD <Lucas Peoples - Last Filed: 01/30/19 22:17> <Elsy Breen - Last Filed: 01/31/19 04:23> Diagnosis at time of Disposition: Gastritis Qualifiers: Gastritis type: unspecified gastritis Chronicity: acute Gastritis bleeding: without bleeding Qualified Code(s): K29.00 - Acute gastritis without bleeding - Discharge Dispostion Disposition: HOME Condition at time of disposition: Stable - Prescriptions Prescriptions: Ondansetron [Zofran Odt -] 4 mg SL TID PRN #12 od.tablet PRN Reason: Nausea Pantoprazole Sodium [Protonix -] 40 mg PO DAILY #20 tablet.ec - Referrals Referrals: Celeste Jung MD [Primary Care Provider] - Rickey Neal MD [Staff Physician] - Call tomorrow - Patient Instructions Printed Discharge Instructions: DI for Gastritis Additional Instructions: zofran ODT 4mg up to 3 X a day as needed for nausea Protonix 40mg daily followup with pocket setter lockstitch(Dr Neal) within the next 5 days return to ER if you have persistent, severe pain/vomiting or develop fever - Post Discharge Activity
[2019-01-30 21:26] LABS: URINE RBC 0-2 /hpf (0-4); URINE WBC 0-2 (NEGATIVE)
[2019-01-30 21:27] LABS: EPI CELLS FEW /HPF; URINE BACTERIA 1+ /hpf (NEGATIVE)
[2019-01-30 21:45] LABS: BASO % 0.2 % (0-2.0); EOS % 0.4 % (0-4.5); HEMATOCRIT 42.6 % (32.4-45.2); LYMPH % 14.9 % (8-40); MCH 29.7 pg (25.7-33.7); MCHC 32.9 g/dl (32.0-36.0); MEAN CELL VOLUME 90.1 fl (80-96); MEAN PLT VOLUME 7.8 fl (7.5-11.1); MONO % 3.9 % (3.8-10.2); NEUT % 80.6 % (42.8-82.8); PLATELET COUNT 307 K/MM3 (134-434); RBC 4.73 M/mm3 (3.60-5.2); RDW 12.6 % (11.6-15.6); WHITE BLOOD COUNT 8.3 K/mm3 (4.0-10.8)
[2019-01-30 21:58] LABS: ALBUMIN 3.8 g/dl (3.4-5.0); ALK PHOS 73 U/L (45-117); ANION GAP 12 MMOL/L (8-16); BILIRUBIN,TOTAL 1.4 mg/dl (0.2-1); BLOOD UREA NITROGEN 11 mg/dl (7-18); CALCIUM 8.9 mg/dl (8.5-10); CHLORIDE 96 mmol/L (98-107); CO2 25 mmol/L (21-32); CREATININE 0.6 mg/dl (0.55-1.3); GLUCOSE,RANDOM 152 mg/dl (74-106); POTASSIUM 4.2 mmol/L (3.5-5.1); SGOT/AST 48 U/L (15-37); SGPT/ALT 39 U/L (13-61); SODIUM 133 mmol/L (136-145); TOT PROT 6.9 g/dl (6.4-8.2)
[2019-01-30] MEDS ORDERED: ONDANSETRON 4 MG/2 ML VIAL IVPUSH ONE (22:00)
[2019-01-30] MEDS ORDERED: SODIUM CHLORIDE 1,000 ML IV STA (22:00)
[2019-01-30] MEDS ORDERED: morphine CARPU-JECT 2 MG/1 ML DISP.SYRIN IVPUSH ONE (22:01)
[2019-01-30] MEDS ORDERED: morphine SULFATE 4 MG/ML VIAL ONE (22:14)
[2019-01-30] MEDS ORDERED: ONDANSETRON 4 MG/2 ML VIAL ONE (22:14)
[2019-01-30 23:19] LABS: LIPASE 82 U/L (73-393)
[2019-01-30] MEDS ORDERED: PANTOPRAZOLE SODIUM 40 MG VIAL IVPB ONE (23:33)
[2019-01-30] MEDS ORDERED: PANTOPRAZOLE SODIUM 40 MG VIAL ONE (23:36)
[2019-01-31] MEDS ORDERED: METOCLOPRAMIDE HCL INJECTION 10 MG/2 ML VIAL IVPB ONE (00:02)
[2019-01-31] MEDS ORDERED: METOCLOPRAMIDE HCL INJECTION 10 MG/2 ML VIAL ONE (00:03)
[2019-01-31 01:04] VITALS: BP 128/68; PULSE 80
== END 2019-01-31 01:04 | disposition home or self-care (01) ==
LOC: FER 19:38
PROC: 3E033GC Introduction of Other Therapeutic Substance into Peripheral Vein, Percutaneous Approach (ICD-10-PCS; principal; 2019-01-30)
PROC: 3E033NZ Introduction of Analgesics, Hypnotics, Sedatives into Peripheral Vein, Percutaneous Approach (ICD-10-PCS; 2019-01-30)
PROC: 3E0337Z Introduction of Electrolytic and Water Balance Substance into Peripheral Vein, Percutaneous Approach (ICD-10-PCS; 2019-01-30)
DX: K29.00 Acute gastritis without bleeding (principal)
CPT/HCPCS: 36415; 74176-TC; 80053; 81015; 83690; 84703; 85025; 87086; 99284-25; J7030

== ENCOUNTER 2020-06-30 02:10 | Emergency (ER) | payer OTHER ==
[2020-06-30] MEDS ORDERED: ONDANSETRON 4 MG/2 ML VIAL IVPB ONE (02:15)
[2020-06-30] MEDS ORDERED: morphine CARPU-JECT 2 MG/1 ML DISP.SYRIN IVPUSH ONE (02:15)
[2020-06-30] MEDS ORDERED: KETOROLAC TROMETHAMINE 30 MG/1 ML VIAL IVPUSH ONE (02:15)
[2020-06-30] MEDS ORDERED: SODIUM CHLORIDE 1,000 ML ONE (02:15)
[2020-06-30] MEDS ORDERED: morphine SULFATE 4 MG/ML VIAL ONE (02:21)
[2020-06-30] MEDS ORDERED: KETOROLAC TROMETHAMINE 30 MG/1 ML VIAL ONE (02:21)
[2020-06-30] MEDS ORDERED: ONDANSETRON 4 MG/2 ML VIAL ONE (02:22)
--- NOTE | 2020-06-30 02:48 | PDOC ---
History of Present Illness - General Chief Complaint: Pain Stated Complaint: ABDOMINAL PAIN Time Seen by Provider: 06/30/20 02:11 History Source: Patient Exam Limitations: No Limitations - History of Present Illness Initial Comments: 06/30/20 02:12 This is a morbidly obese 43-year-old female who comes in post eating some fried pork chops. Patient has right upper quadrant pain. Patient denies history of similar pain in the past. Patient patient denies any radiation of pain. Pain is associated with some nausea and vomiting. Patient is otherwise healthy other than her obesity. Allergies: as per nursing notes Past Medical History: none Social history: Lives with family. No smoking. No alcohol. No illicit drugs. Surgical history: None General: No fevers or chills, no weakness, no weight loss HEENT: No change in vision. No sore throat,. No ear pain CardioVascular: no chest discomfort. No shortness of breath Respiratory:No cough, or wheezing. Gastrointestinal: +nausea, + vomiting, no diarrhea or constipation, No rectal bleeding Genitourinary: No dysuria, hematuria, or frequency Musculoskeletal: No joint or muscle pain or swelling Neurologic: No headache, vertigo, dizziness or loss of consciousness Psychiatric: nor depression Skin: No rashes or easy bruising Endocrine: no increased thirst or abnormal weight change Allergic: no skin or latex allergy All other systems reviewed and normal Exam: General: Well-nourished well-developed individual, no acute distress HEENT: Throat: Normal, tonsils normal, no erythema or exudate Neck: Supple, no meningeal signs, no lymphadenopathy Eyes::Pupils equal reactive and round, extraocular motion intact Chest: Nontender to palpation Cardiac: S1-S2 normal, regular rate and rhythm, no murmurs rubs or gallops Respiratory: Lungs clear to auscultation bilateral Abdomen: Soft, nondistended, tender to palpation right upper quadrant no guarding or rebound. Normal bowel sounds Extremities: Warm, dry, no cyanosis, clubbing, or edema Skin: No rashes Neuro: Alert and oriented x3, CN II - XII intact, nonfocal exam with normal strength, normal sensation, normal reflexes, normal gait, Psych: Normal mood and affect. Assessment and plan: This is a 45-year-old female with right upper quadrant abd ominal pain after eating fatty meal. Work-up initiated including CBC, comp, EKG, troponin, gallbladder ultrasound, IV fluids, pain medication and nausea medication 06/30/20 05:13 Reevaluation: Patient feels much better no further vomiting nausea and pain is resolved. Patient's work-up was negative for any acute pathology. The only finding was a cyst of the renal gland that needs to be followed up with an outpatient CAT scan. Patient given copies of the ultrasound and told to make sure she followed up with her doctor and scheduled an outpatient CAT scan. Patient discharged home. Past History - Medical History Allergies/Adverse Reactions: Allergies Allergy/AdvReac Type Severity Reaction Status Date / Time No Known Allergies Allergy Verified 06/30/20 04:00 Home Medications: Ambulatory Orders Ondansetron [Zofran *Odt*] 8 mg SL TID #12 od.tablet 06/30/20 Anemia: No Asthma: Yes Cancer: No Cardiac Disorders: No CVA: No COPD: No CHF: No Dementia: No Diabetes: No GI Disorders: Yes (DIVERTICULITIS) Disorders: No HTN: No Hypercholesterolemia: No Liver Disease: No Seizures: No Thyroid Disease: No - Surgical History Abdominal Surgery: No Appendectomy: No Cardiac Surgery: No Cholecystectomy: No Lung Surgery: No Neurologic Surgery: No Orthopedic Surgery: No - Psycho-Social/Smoking History Smoking History: Never smoked Have you smoked in the past 12 months: No If you are a former smoker, when did you quit?: 2000 ED Treatment Course - LABORATORY CBC & Chemistry Diagram: 06/30/20 02:15 06/30/20 02:15 Discharge - Discharge Information Problems reviewed: Yes Clinical Impression/Diagnosis: Abdominal pain Condition: Stable Disposition: HOME - Admission No - Additional Discharge Information Prescriptions: Ondansetron [Zofran *Odt*] 8 mg SL TID #12 od.tablet - Follow up/Referral - Patient Discharge Instructions Additional Instructions: It is important that you call your doctor on Wednesday and get an appointment for a outpatient CAT scan to further evaluate the renal cyst.. Tylenol or Motrin as needed for further pain I also sent a prescription to your pharmacy for Zofran that you can take as needed for nausea Return to the emergency department immediately with ANY new, persistent or worsening symptoms. Continue any medications as previously prescribed by your physician. You should follow up with your primary doctor as soon as possible regarding today's emergency department visit. . Please make sure your doctor reviews the results of your emergency evaluation. Thank you for coming to the Emergency Department today for your care. It was a pleasure to see you today. Please note that your evaluation is INCOMPLETE until you follow-up with your doctor. - Post Discharge Activity
[2020-06-30 04:00] VITALS: TEMP 97.7; BMI 37.8
[2020-06-30 04:26] LABS: BASO % 0.3 % (0-2.0); EOS % 1.1 % (0-4.5); HEMATOCRIT 41.2 % (32.4-45.2); LYMPH % 49.6 % (8-40); MCH 30.8 pg (25.7-33.7); MEAN CELL VOLUME 90.3 fl (80-96); MONO % 5.5 % (3.8-10.2); NEUT % 43.5 % (42.8-82.8); PLATELET COUNT 316 K/MM3 (134-434); RBC 4.56 M/mm3 (3.60-5.2); RDW 12.8 % (11.6-15.6); WHITE BLOOD COUNT 8.8 K/mm3 (4.0-10.0)
[2020-06-30 04:34] LABS: ALBUMIN 3.8 g/dl (3.4-5.0); ALK PHOS 81 U/L (45-117); ANION GAP 7 MMOL/L (8-16); BILIRUBIN,TOTAL 0.3 mg/dL (0.2-1); BLOOD UREA NITROGEN 15.1 mg/dL (7-18); CALCIUM 9.2 mg/dL (8.5-10.1); CHLORIDE 100 mmol/L (98-107); CO2 33 mmol/L (21-32); CREATININE 0.7 mg/dL (0.55-1.3); GLUCOSE,RANDOM 158 mg/dL (74-106); LIPASE 148 U/L (73-393); POTASSIUM 3.9 mmol/L (3.5-5.1); SGOT/AST 48 U/L (15-37); SODIUM 140 mmol/L (136-145)
[2020-06-30 04:55] LABS: TOT PROT 7.5 g/dl (6.4-8.2)
[2020-06-30 04:56] LABS: SGPT/ALT 47 U/L (13-61)
[2020-06-30 05:19] VITALS: BP 112/59; PULSE 72
--- NOTE | 2020-07-01 18:29 | EKG ---
Test Reason : Blood Pressure : / mmHG Vent. Rate : 047 BPM Atrial Rate : 047 BPM P-R Int : 152 ms QRS Dur : 080 ms QT Int : 452 ms P-R-T Axes : 056 020 018 degrees QTc Int : 400 ms SINUS BRADYCARDIA OTHERWISE NORMAL ECG WHEN COMPARED WITH ECG OF 21-JUL-2018 21:39, PREMATURE VENTRICULAR COMPLEXES ARE NO LONGER PRESENT VENT. RATE HAS DECREASED BY 52 BPM T WAVE VARIATION Confirmed by JORGE MOORE, LAURA ([id number]) on 07/01/2020 6:29:14 PM Referred By: MD PUTNAM Confirmed By:LAURA PATEL MD
== END 2020-06-30 05:35 | disposition home or self-care (01) ==
LOC: FER 02:10
PROC: 3E033NZ Introduction of Analgesics, Hypnotics, Sedatives into Peripheral Vein, Percutaneous Approach (ICD-10-PCS; principal; 2020-06-30)
PROC: 3E033GC Introduction of Other Therapeutic Substance into Peripheral Vein, Percutaneous Approach (ICD-10-PCS; 2020-06-30)
PROC: 3E0337Z Introduction of Electrolytic and Water Balance Substance into Peripheral Vein, Percutaneous Approach (ICD-10-PCS; 2020-06-30)
DX: R10.9 Unspecified abdominal pain (principal)
CPT/HCPCS: 36415; 71045-TC-FY; 76705-TC; 80053; 82550; 83690; 84484; 85025; 93005; 99285-25